=== PATIENT | female | born 1970 | race Caucasian/White ===

== ENCOUNTER 2021-07-16 09:04 | Day surgery (SDC) | payer OTHER ==
[2021-07-16] MEDS ORDERED: Sodium Chloride 0.9% 10 ML FLUSH Syringe IJ ONE (09:05)
[2021-07-16] MEDS ORDERED: Depo-Medrol 40 MG/ML IM ONE (09:05)
[2021-07-16] MEDS ORDERED: Lactated Ringers 1,000 ML IV ONE (10:26)
[2021-07-16] MEDS ORDERED: DIPRIVAN 200 MG/20 ML IV ONE (10:48)
--- NOTE | 2021-07-16 11:38 | XRAY ---
Indication: Left L4-S1 transforaminal ADWOA. Intraoperative fluoroscopy provided for 48 seconds. 4 digital spot image submitted for interpretation demonstrates posterior needle tips projecting over the expected left L4 and L5 nerve roots. Small amount of contrast injected for needle tip placement. Correlate with intraoperative findings/report.
--- NOTE | 2021-07-16 12:25 | XRAY ---
48 seconds of fluoroscopy was used in surgery for a left L4-S1 RFA.
== END 2021-07-16 11:17 | disposition home or self-care (01) ==
LOC: SDC-PAIN 09:04
PROVIDERS: ATTEND Psychiatry & Neurology Pain Medicine
DX: M54.16 Radiculopathy, lumbar region (principal); I10 Essential (primary) hypertension; E11.9 Type 2 diabetes mellitus without complications; Z79.899 Other long term (current) drug therapy
CPT/HCPCS: 64483; 64484; 72100; 77003; 82947; J1030; J2704; Q9966

== ENCOUNTER 2021-08-20 07:44 | Day surgery (SDC) | payer OTHER ==
[2021-08-20] MEDS ORDERED: LIDOCAINE HCL 2% 100 MG/5 ML IJ ONE (07:45)
[2021-08-20] MEDS ORDERED: Depo-Medrol 40 MG/ML IM ONE (07:45)
[2021-08-20] MEDS ORDERED: DIPRIVAN 200 MG/20 ML IV ONE (09:20)
[2021-08-20] MEDS ORDERED: Lactated Ringers 1,000 ML IV ONE (10:02)
--- NOTE | 2021-08-20 11:05 | XRAY ---
Indication: Bilateral L4-S1 MBB. Intraoperative fluoroscopy provided for 17 seconds. Single digital spot image submitted for interpretation demonstrate posterior needle tips projecting over the expected left and right L4-S1 nerve roots. Correlate with intraoperative findings/report.
--- NOTE | 2021-08-20 12:13 | XRAY ---
17 seconds of fluoroscopy was used in surgery for a bilateral L4-S1 MBB.
== END 2021-08-20 09:52 | disposition home or self-care (01) ==
LOC: SDC-PAIN 07:44
PROVIDERS: ATTEND Psychiatry & Neurology Pain Medicine
DX: M47.816 Spondylosis without myelopathy or radiculopathy, lumbar region (principal); E11.9 Type 2 diabetes mellitus without complications; I10 Essential (primary) hypertension; Z79.899 Other long term (current) drug therapy
CPT/HCPCS: 64493; 64494; 72020; 77002; 82947; J1030; J2704

== ENCOUNTER 2021-09-03 06:56 | Day surgery (SDC) | payer OTHER ==
[2021-09-03] MEDS ORDERED: Depo-Medrol 40 MG/ML IM ONE (06:57)
[2021-09-03] MEDS ORDERED: BUPIVACAINE 0.5% VIAL IJ ONE (06:57)
[2021-09-03] MEDS ORDERED: DIPRIVAN 200 MG/20 ML IV ONE (08:27)
--- NOTE | 2021-09-03 10:00 | XRAY ---
Indication: Bilateral L4-S1 MBB. Intraoperative fluoroscopy provided for 15 seconds. Single digital spot image submitted for interpretation demonstrates posterior needle tips projecting over the expected left and right L4-S1 nerve roots. Correlate with intraoperative findings/report.
[2021-09-03] MEDS ORDERED: Lactated Ringers 1,000 ML IV ONE (10:14)
--- NOTE | 2021-09-03 10:30 | XRAY ---
15 seconds of fluoroscopy was used in surgery for a bilateral L4-L1 MBB.
== END 2021-09-03 08:53 | disposition home or self-care (01) ==
LOC: SDC-PAIN 06:56
PROVIDERS: ATTEND Psychiatry & Neurology Pain Medicine
DX: M47.816 Spondylosis without myelopathy or radiculopathy, lumbar region (principal); I10 Essential (primary) hypertension; E11.9 Type 2 diabetes mellitus without complications; Z79.899 Other long term (current) drug therapy
CPT/HCPCS: 64493; 64494; 72020; 77002; 82947; J1030; J2704

== ENCOUNTER 2021-10-08 06:55 | Day surgery (SDC) | payer OTHER ==
[2021-10-08] MEDS ORDERED: BUPIVACAINE 0.5% VIAL IJ ONE (06:56)
[2021-10-08] MEDS ORDERED: Depo-Medrol 40 MG/ML IM ONE (06:56)
[2021-10-08] MEDS ORDERED: Xylocaine 1% Vial 30 ML PF IJ ONE (06:56)
[2021-10-08] MEDS ORDERED: DIPRIVAN 200 MG/20 ML IV ONE (08:16)
[2021-10-08] MEDS ORDERED: Lactated Ringers 1,000 ML IV ONE (08:55)
--- NOTE | 2021-10-08 10:13 | XRAY ---
35 seconds fluoroscopy time in surgery for left L4-S1 RFA.
--- NOTE | 2021-10-08 10:24 | XRAY ---
Indication: Left L4-S1 RFA. Intraoperative fluoroscopy provided for 35 seconds. 3 digital spot image submitted for interpretation demonstrates posterior needle tips projecting over the expected left L4-S1 nerve roots. Correlate with intraoperative findings/report.
== END 2021-10-08 08:43 | disposition home or self-care (01) ==
LOC: SDC-PAIN 06:55
PROVIDERS: ATTEND Psychiatry & Neurology Pain Medicine
DX: M47.816 Spondylosis without myelopathy or radiculopathy, lumbar region (principal); I10 Essential (primary) hypertension; E11.9 Type 2 diabetes mellitus without complications; Z79.899 Other long term (current) drug therapy
CPT/HCPCS: 64635; 64636; 72100; 77002; 82947; J1030; J2001; J2704

== ENCOUNTER 2021-10-15 06:49 | Day surgery (SDC) | payer OTHER ==
[2021-10-15] MEDS ORDERED: Xylocaine 1% Vial 30 ML PF IJ ONE (08:00)
[2021-10-15] MEDS ORDERED: Depo-Medrol 40 MG/ML IM ONE (08:00)
[2021-10-15] MEDS ORDERED: DIPRIVAN 200 MG/20 ML IV ONE ×2 (08:00→08:24)
[2021-10-15] MEDS ORDERED: BUPIVACAINE 0.5% VIAL IJ ONE (08:00)
[2021-10-15] MEDS ORDERED: Lactated Ringers 1,000 ML IV ONE (08:59)
--- NOTE | 2021-10-15 10:18 | XRAY ---
Indication: Right L4-S1 RFA. Intraoperative fluoroscopy provided for 57 seconds. 3 digital spot images submitted for interpretation demonstrates posterior needle tips projecting over the expected right L4-S1 nerve roots. Correlate with intraoperative findings/report.
--- NOTE | 2021-10-15 10:20 | XRAY ---
57 seconds fluoroscopy time in surgery for right L4-S1 RFA.
== END 2021-10-15 08:46 | disposition home or self-care (01) ==
LOC: SDC-PAIN 06:49
PROVIDERS: ATTEND Psychiatry & Neurology Pain Medicine
DX: M47.816 Spondylosis without myelopathy or radiculopathy, lumbar region (principal); E11.9 Type 2 diabetes mellitus without complications; I10 Essential (primary) hypertension; Z79.899 Other long term (current) drug therapy
CPT/HCPCS: 64635; 64636; 72100; 77002; 82947; J1030; J2001; J2704

== ENCOUNTER 2022-01-21 08:39 | Day surgery (SDC) | payer OTHER ==
[2022-01-21] MEDS ORDERED: Depo-Medrol 40 MG/ML IM ONE (08:40)
[2022-01-21] MEDS ORDERED: Marcaine Mpf 0.5% Vial 30 Ml IJ ONE (08:40)
[2022-01-21] MEDS ORDERED: DIPRIVAN 200 MG/20 ML IV ONE (10:02)
[2022-01-21] MEDS ORDERED: Lactated Ringers 1,000 ML IV ONE (10:07)
--- NOTE | 2022-01-21 11:46 | XRAY ---
Indication: Bilateral greater trochanter bursa injection. Intraoperative fluoroscopy provided for 59 seconds. 2 digital spot images submitted for interpretation demonstrate needle tip projecting lateral to the left and right greater trochanters. Small amount of contrast injected for needle tip placement. Correlate with intraoperative findings/report.
--- NOTE | 2022-01-21 12:29 | XRAY ---
59 seconds of fluoroscopy was used in surgery for bilateral hip greater trochanteric bursa injections.
== END 2022-01-21 10:31 | disposition home or self-care (01) ==
LOC: SDC-PAIN 08:39
PROVIDERS: ATTEND Psychiatry & Neurology Pain Medicine
DX: M70.62 Trochanteric bursitis, left hip (principal); M70.61 Trochanteric bursitis, right hip; E11.9 Type 2 diabetes mellitus without complications; Z79.899 Other long term (current) drug therapy
CPT/HCPCS: 20610; 73521; 77002; 82947; J1030; J2704; Q9966

== ENCOUNTER 2023-09-12 14:48 | Observation (INO) | payer OTHER ==
[2023-09-12] MEDS ORDERED: solu-MEDROL 125 MG, Sterile H2O 10 ml 2 ML IV ONE ×2 (15:11)
[2023-09-12] MEDS ORDERED: DUONEB 0.5-3 MG/3 ml Neb IH ONE ×2 (15:11→18:33)
[2023-09-12] MEDS ORDERED: PULMICORT 0.5 MG/2 ML RESPULES IH ONE (15:13)
[2023-09-12] MEDS ORDERED: Sodium Chloride 0.9% 1000 ML 1,000 ML IV SCH (15:15)
[2023-09-12 15:27] LABS: Hematocrit 43.5 % (35-47); Hemoglobin 14.7 g/dL (12.0-16.0); Mean Corpuscular Hemoglobin 28.1 pg (26-32); Mean Corpuscular Hgb Concent. 33.8 g/dL (32-36); Mean Platelet Volume 9.8 fL (7.5-11.0); Platelet Count 170 x10^3/uL (150-450); Red Blood Count 5.24 x10^6/uL (4.1-5.4); Red Cell Distribution Width 13.1 % (11.5-14.0)
[2023-09-12 15:29] LABS: White Blood Count 27.2 x10^3/uL (4.0-10.5)
[2023-09-12] MEDS ORDERED: Sterile H2O 10 ml IJ ONE ×2 (15:31→21:25)
[2023-09-12] MEDS ORDERED: solu-MEDROL ONE ×2 (15:31→21:25)
[2023-09-12] MEDS ORDERED: Sodium Chloride 0.9% 1000 ML 1,000 ML ONE (15:32)
[2023-09-12] MEDS ORDERED: ROCEPHIN 1 GM / 100 ML NaCl 1 GM/100 ML IVPB IV ONE ×2 (15:32→16:05)
--- NOTE | 2023-09-12 15:32 | ERPHSYRPT ---
- History of Present Illness Time Seen by Provider: 09/12/23 15:29 Source: patient Exam Limitations: clinical condition Patient Subjective Stated Complaint: pt here for a cough for a week with weakness, some n/v. no loose stools no fever Triage Nursing Assessment: pt alert, walked in, resp easy, skin w/d/p, has dry hacky cough, chest clear, moves all ext well Physician History: Patient is 53-year-old female with significant past medical history of hypertension diabetes obesity started having cough shortness of breath fever chills for last 1 week. Patient thought she will get better so she waited but today her symptoms got so worse that she came to the emergency room. She is complaining of chest pain while breathing. She is also very short of breath with minimal exertion. Patient denies any sick contact at home. Timing/Duration: day(s) (5-7 days) Activities at Onset: none Severity of Dyspnea-Max: moderate Severity of Dyspnea-Current: moderate Possible Cause: occasional episodes Associated Symptoms: chest pain/discomfort, wheezing, painful breathing, pr oductive cough, sweating Allergies/Adverse Reactions: ciprofloxacin [From Cipro] Adverse Reaction (Verified 09/12/23 15:01) metformin Adverse Reaction (Verified 09/12/23 15:01) Home Medications: Allopurinol 100 mg [Zyloprim 100 mg] 100 mg PO DAILY 09/12/23 [History] Amlodipine Besylate 5 mg [Norvasc 5 mg] 5 mg PO DAILY 09/12/23 [History] Cyclobenzaprine HCl 10 mg [Cyclobenzaprine 10 MG] 10 mg PO DAILY 09/12/23 [History] Escitalopram Oxalate [Lexapro] 1 ea DAILY 09/12/23 [History] Glimepiride 1 mg PO DAILY 09/12/23 [History] Insulin Glargine [Lantus Insulin] 40 unit SQ DAILY 09/12/23 [History] Semaglutide [Ozempic] 1 mg SQ UD 09/12/23 [History] Spironolactone 25 mg [Aldactone 25 MG] 25 mg PO DAILY 09/12/23 [History] Hx Tetanus, Diphtheria Vaccination/Date Given: No Hx Influenza Vaccination/Date Given: No Hx Pneumococcal Vaccination/Date Given: No Immunizations Up to Date: Yes Travel Risk - International Travel Have you traveled outside of the country in past 3 weeks: No - Coronavirus Screening Are you exhibiting any of the following symptoms?: Yes Symptoms: Cough: New Onset, Shortness of Breath Close contact with a COVID-19 positive Pt in past 14-21 Days: No - Vaccine Status Have you recieved a Covid-19 vaccination: Yes [employer]: [employer] - Vaccination Dates Date of 2cond Vaccination (if applicable): 2020 - Review of Systems Constitutional: No Fever, No Chills Eyes: No Symptoms Ears, Nose, & Throat: No Symptoms Respiratory: Cough, Dyspnea, Dyspnea on Exertion (GARCIA), Wheezing Cardiac: Chest Pain, No Edema, No Syncope Abdominal/Gastrointestinal: No Abdominal Pain, No Nausea, No Vomiting, No Diarrhea Genitourinary Symptoms: No Dysuria Musculoskeletal: No Back Pain, No Neck Pain Skin: No Rash Neurological: No Dizziness, No Focal Weakness, No Sensory Changes Psychological: No Symptoms Endocrine: No Symptoms All Other Systems: Reviewed and Negative - Past Medical History Pertinent Past Medical History: Yes Neurological History: Other Cardiac History: Hypertension Respiratory History: No Pertinent History Endocrine Medical History: Diabetes Type II Musculoskeletal History: Arthritis Other Medical History: kidney stones - Past Surgical History Past Surgical History: Yes Gastrointestinal: Cholecystectomy Female Surgical History: Hysterectomy - Social History Smoking Status: Former smoker Exposure to second hand smoke: No Drug Use: none Patient Lives Alone: Yes - Nursing Vital Signs Nursing Vital Signs: Initial Vital Signs Temperature 99.1 F 09/12/23 15:00 Pulse Rate 110 H 09/12/23 15:00 Respiratory Rate 18 09/12/23 15:00 Blood Pressure 122/69 09/12/23 15:00 O2 Sat by Pulse Oximetry 91 L 09/12/23 15:00 Pain Scale Pain Intensity 6 - Physical Exam General Appearance: no apparent distress, alert Eye Exam: PERRL/EOMI Neck Exam: normal inspection, supple Respiratory Exam: chest tenderness, diminished breath sounds, crackles/rales, rhonchi, wheezing Cardiovascular/Chest Exam: normal heart sounds, regular rate/rhythm Abdominal/Gastrointestinal Exam: soft, No tenderness, No distention, No mass Extremity Exam: non-tender, normal range of motion, normal inspection, no calf tenderness, no pedal edema Neurologic Exam: alert, oriented x 3, cooperative, veneer drier feeder II-XII nml as tested, sensation nml, No motor deficits Skin Exam: normal color, warm, No dry SpO2 Interpretation: borderline oxygenation SpO2: 91 O2 Delivery: Room Air - Course Nursing assessment & vital signs reviewed: Yes EKG Interpreted by Me: Sinus Rhythm - Radiology Exams Chest X-ray Interpretation: Reviewed by me, Pneumonia (right middle lobe) Ordered Tests: Active Orders 24 hr Category Date Time Status EKG-ER Only STAT Care 09/12/23 15:11 Active Oxygen-ED Only Nasal Cannula 3 lpm Care 09/12/23 15:11 Active CHEST 2 VIEWS (PA AND LAT) Stat Exams 09/12/23 15:32 Taken CBC W DIFF Stat Lab 09/12/23 15:15 Completed CMP Stat Lab 09/12/23 15:15 Completed MAGNESIUM Stat Lab 09/12/23 15:15 Completed Manual Differential NC Stat Lab 09/12/23 15:15 Completed NT PRO BNPII Stat Lab 09/12/23 15:15 Received TROPONIN Stat Lab 09/12/23 15:15 Completed Respiratory Therapy Assessment DAILY RT 09/12/23 15:43 Active Transfer Order Routine Transfer 09/12/23 Ordered Medication Summary Generic Name Dose Route Start Last Admin Trade Name Freq PRN Reason Stop Dose Admin Sodium Chloride 1,000 mls @ 50 mls/hr 09/12/23 15:15 09/12/23 15:35 Sodium Chloride 0.9% 1000 Ml IV 10/12/23 15:14 50 mls/hr .Q20H MEGAN Administration Discontinued Medications Generic Name Dose Route Start Last Admin Trade Name Freq PRN Reason Stop Dose Admin Albuterol/Ipratropium 3 ml 09/12/23 15:11 09/12/23 15:39 Ipratropium/Albuterol Sulfate 3 Ml Ampul.Neb 09/12/23 15:12 3 ml STAT ONE Administration Budesonide 0.5 mg 09/12/23 15:13 09/12/23 15:39 Budesonide 0.5 Mg/2 Ml Ampul.Neb. 09/12/23 15:14 0.5 mg ONCE ONE Administration Methylprednisolone Sodium 0 mg 09/12/23 15:11 09/12/23 15:36 Succinate 125 mg/ Sterile IV 09/12/23 15:12 125 mg Water 2 ml STAT ONE Administration Ceftriaxone Sodium 1 gm in 100 mls @ 200 mls/hr 09/12/23 15:32 09/12/23 16:15 Rocephin 1 Gm / 100 Ml Nacl IV 09/12/23 16:01 200 ml/hr STAT ONE 200 mls/hr Administration Ceftriaxone Sodium Confirm 09/12/23 16:05 Rocephin 1 Gm / 100 Ml Nacl Administered 09/12/23 16:06 Dose 1 gm in 100 mls @ ud IV .STK-MED ONE Methylprednisolone Sodium Succinate Confirm 09/12/23 15:31 Methylprednis Sod Succ 125 Mg/2 Ml Vial Administered 09/12/23 15:32 Dose 125 mg .ROUTE .STK-MED ONE Sterile Water Confirm 09/12/23 15:31 Water For Injection,Sterile 10 Ml Vial Administered 09/12/23 15:32 Dose 10 ml IJ .STK-MED ONE Lab/Rad Data: Laboratory Result Diagrams 09/12/23 15:15 09/12/23 15:15 Laboratory Results 09/12/23 09/12/23 09/12/23 Range/Units 15:20 15:15 15:15 WBC 27.2 H* (4.0-10.5) x10^3/uL RBC 5.24 (4.1-5.4) x10^6/uL Hgb 14.7 (12.0-16.0) g/dL Hct 43.5 (35-47) % MCV 83.0 (78-100) fL MCH 28.1 (26-32) pg MCHC 33.8 (32-36) g/dL RDW 13.1 (11.5-14.0) % Plt Count 170 (150-450) x10^3/uL MPV 9.8 (7.5-11.0) fL Segmented Neutrophils 92 H (36.0-66.0) % Lymphocytes (Manual) 1 L (24-44) % Monocytes (Manual) 7 (0.0-12.0) % Platelet Estimate NORMAL (NORMAL) RBC Morphology NORMAL Sodium 127 L (137-145) mmol/L Potassium 3.5 (3.5-5.1) mmol/L Chloride 91 L (98-107) mmol/L Carbon Dioxide 26 (22-30) mmol/L Anion Gap 12.8 (5-15) MEQ/L BUN 16 (7-17) mg/dL Creatinine 1.03 (0.52-1.04) mg/dL Estimated GFR 64.2 ML/MIN Glucose 226 H (74-106) mg/dL Calcium 8.8 (8.4-10.2) mg/dL Magnesium 1.6 (1.6-2.3) mg/dL Total Bilirubin 1.40 H (0.2-1.3) mg/dL AST 29 (14-36) U/L ALT 24 (0-35) U/L Alkaline Phosphatase 104 (38-126) U/L Troponin I < 0.012 (0.000-0.034) ng/mL Serum Total Protein 7.5 (6.3-8.2) g/dL Albumin 3.9 (3.5-5.0) g/dL Influenza Type A Ag NEGATIVE (NEGATIVE) Influenza Type B Ag NEGATIVE (NEGATIVE) RSV (PCR) POSITIVE (NEGATIVE) SARS-CoV-2 (PCR) NEGATIVE (NEGATIVE) - Progress Progress: unchanged Air Movement: fair Antibiotics given: Yes Discussed with : Other (Dr Lazaro) Counseled pt/family regarding: lab results, diagnosis, need for follow-up, rad results Medical Desision Making - Independent Historian Additional History obtained from: Spouse - Discussion of managment Care discussed with:: hospitalist Agreed on:: place in obs - Diagnostic Testing Diagnostic test were ordered, analyzed, and reviewed by me: Yes Radiological Interpretation: Reviewed by me - Risk of complications The pt has a mod risk of morbidity or mortality based on: Need for prescription drug management - Departure Departure Disposition: Observation Clinical Impression: Pneumonia of right middle lobe due to infectious organism, RSV (respiratory syncytial virus pneumonia) Condition: Fair Critical Care Time: No Referrals: DONI ESCOBAR DO [Primary Care Provider] - Follow up/PCP as directed Instructions: Pneumonia, Adult (DC)
[2023-09-12 16:05] LABS: INFLUENZA A NEGATIVE (NEGATIVE); INFLUENZA B NEGATIVE (NEGATIVE); SARS-CoV-2 Xpert Express NEGATIVE (NEGATIVE)
[2023-09-12 16:09] LABS: Lymphocytes 1 % (24-44); Monocyte 7 % (0.0-12.0); Neutrophils 92 % (36.0-66.0); Total Cells Counted 100
[2023-09-12 16:10] LABS: Platelet Estimate NORMAL (NORMAL)
[2023-09-12 16:13] LABS: RESPIRATORY SYNCTIAL VIRUS POSITIVE (NEGATIVE)
[2023-09-12 16:18] LABS: ALBUMIN 3.9 g/dL (3.5-5.0); ALKALINE PHOSPHATASE 104 U/L (38-126); ANION GAP 12.8 MEQ/L (5-15); BLOOD UREA NITROGEN 16 mg/dL (7-17); CHLORIDE 91 mmol/L (98-107); Calcium 8.8 mg/dL (8.4-10.2); Carbon Dioxide 26 mmol/L (22-30); Creatinine 1 1.03 mg/dL (0.52-1.04); EST GLOMERULAR FILTRATION RATE 64.2 ML/MIN; Glucose 226 mg/dL (74-106); MAGNESIUM 1.6 mg/dL (1.6-2.3); Potassium 3.5 mmol/L (3.5-5.1); SGOT/AST 29 U/L (14-36); SGPT/ALT 24 U/L (0-35); SODIUM 127 mmol/L (137-145); TROPONIN < 0.012 ng/mL (0.000-0.034); Total Protein 7.5 g/dL (6.3-8.2)
[2023-09-12] MEDS ORDERED: ROCEPHIN 1 GM / 100 ML NaCl 1 GM/100 ML IVPB IV SCH (17:16)
--- NOTE | 2023-09-12 17:21 | PCM.HP ---
History of Present Illness - Chief Complaint Chief Complaint: sob/cough Date: 09/12/23 History of Present Illness: is a 53 year old female with a pmhx of DMII, HTN, and depression who presented to ED 09/12/23 with complaints of shortness of breath at rest and with exertion, non-productive cough, and subjective fever/chills. Patient reports that symptoms began about a week ago with her shortness of breath getting progressively worse which prompted her to come to ED today. She also endorses right chest pain with deep inhalation and cough. She states her friend also has the same symptoms. In ED, patient was tachycardic with spo2 @ 91% on RA. CXR consistent with pneumonia. Laboratory findings remarkable for leukocytosis with WBC at 27.2, RSV positive, hyponatremia in the setting of hyperglycemia, corrected sodium at 129.Patient placed on 2L oxygen, RA at baseline. Ceftriaxone, solumedrol, azithromycin, and duonebs given/ - Review of Systems Constitutional: Fever, Chills Eyes: No Symptoms Ears, Nose, & Throat: No Symptoms Respiratory: Cough, Short Of Breath Cardiac: Chest Pain (with cough/deep inhalation) Abdominal/Gastrointestinal: No Symptoms Genitourinary Symptoms: No Symptoms Musculoskeletal: No Symptoms Skin: No Symptoms Neurological: No Symptoms Psychological: No Symptoms Endocrine: No Symptoms Medications & Allergies Home Medications: Home Medication List Allopurinol 100 mg [Zyloprim 100 mg] 200 mg PO DAILY 09/12/23 [History Confirmed 09/12/23] Amlodipine Besylate 5 mg [Norvasc 5 mg] 5 mg PO DAILY 09/12/23 [History Confirmed 09/12/23] Cyclobenzaprine HCl 10 mg [Cyclobenzaprine 10 MG] 10 mg PO DAILY 09/12/23 [History Confirmed 09/12/23] Escitalopram Oxalate [Lexapro] 10 mg PO DAILY 09/12/23 [History Confirmed 09/12/23] Glimepiride 1 mg PO BID 09/12/23 [History Confirmed 09/12/23] Insulin Glargine [Lantus Insulin] 40 unit SQ DAILY 09/12/23 [History Confirmed 09/12/23] Semaglutide [Ozempic] 1 mg SQ UD 09/12/23 [History Confirmed 09/12/23] Spironolactone 25 mg [Aldactone 25 MG] 25 mg PO DAILY 09/12/23 [History Confirmed 09/12/23] hydroCHLOROthiazide [Hydrochlorothiazide] 12.5 mg PO DAILY 09/12/23 [History Confirmed 09/12/23] Allergies/Adverse Reactions: Allergies Allergy/AdvReac Type Severity Reaction Status Date / Time ciprofloxacin [From Cipro] AdvReac Verified 09/12/23 15:01 metformin AdvReac Verified 09/12/23 15:01 - Past Medical History Past Medical History: Yes Neurological History: Other Cardiac History: Hypertension Respiratory History: No Pertinent History Endocrine Medical History: Diabetes Type II Musculoskelatal History: Arthritis Pyscho-Social History: Depression Comment: kidney stones - Past Surgical History Past Surgical History: Yes GI Surgical History: Cholecystectomy Female Surgical History: Hysterectomy - Social History Smoking Status: Former smoker Exposure to second hand smoke: No Alcohol: None Drug Use: none - Physical Exam Vital Signs: Vital Signs - 24 hr Temp Pulse Resp BP BP Pulse Ox 09/12/23 16:31 91 L 09/12/23 16:00 103 H 28 H 104/56 89 L 09/12/23 15:50 102 H 26 H 95 09/12/23 15:47 98 H 21 96 09/12/23 15:43 104 H 18 91 L 09/12/23 15:19 22 91 L 09/12/23 15:00 99.1 F 110 H 18 122/69 91 L General Appearance: no apparent distress Neurologic Exam: alert, oriented x 3, cooperative Eye Exam: PERRL/EOMI Ears, Nose, Throat Exam: normal ENT inspection Neck Exam: normal inspection Respiratory Exam: diminished breath sounds, crackles/rales Cardiovascular Exam: normal heart sounds, tachycardia Gastrointestinal/Abdomen Exam: soft, normal bowel sounds Pelvic Exam: not done Rectal Exam: deferred Back Exam: normal inspection Extremity Exam: normal inspection Skin Exam: normal color Results - Labs Lab/Micro Results: Lab Results-Last 24 Hours 09/12/23 09/12/23 09/12/23 Range/Units 15:15 15:15 15:15 WBC 27.2 H* (4.0-10.5) x10^3/uL RBC 5.24 (4.1-5.4) x10^6/uL Hgb 14.7 (12.0-16.0) g/dL Hct 43.5 (35-47) % MCV 83.0 (78-100) fL MCH 28.1 (26-32) pg MCHC 33.8 (32-36) g/dL RDW 13.1 (11.5-14.0) % Plt Count 170 (150-450) x10^3/uL MPV 9.8 (7.5-11.0) fL Segmented Neutrophils 92 H (36.0-66.0) % Lymphocytes (Manual) 1 L (24-44) % Monocytes (Manual) 7 (0.0-12.0) % Platelet Estimate NORMAL (NORMAL) RBC Morphology NORMAL Sodium 127 L (137-145) mmol/L Potassium 3.5 (3.5-5.1) mmol/L Chloride 91 L (98-107) mmol/L Carbon Dioxide 26 (22-30) mmol/L Anion Gap 12.8 (5-15) MEQ/L BUN 16 (7-17) mg/dL Creatinine 1.03 (0.52-1.04) mg/dL Estimated GFR 64.2 ML/MIN Glucose 226 H (74-106) mg/dL Calcium 8.8 (8.4-10.2) mg/dL Magnesium 1.6 (1.6-2.3) mg/dL Total Bilirubin 1.40 H (0.2-1.3) mg/dL AST 29 (14-36) U/L ALT 24 (0-35) U/L Alkaline Phosphatase 104 (38-126) U/L Troponin I < 0.012 (0.000-0.034) ng/mL NT-Pro-B Natriuret Pep 37.5 (<300) pg/mL Serum Total Protein 7.5 (6.3-8.2) g/dL Albumin 3.9 (3.5-5.0) g/dL Influenza Type A Ag (NEGATIVE) Influenza Type B Ag (NEGATIVE) RSV (PCR) (NEGATIVE) SARS-CoV-2 (PCR) (NEGATIVE) 09/12/23 Range/Units 15:20 WBC (4.0-10.5) x10^3/uL RBC (4.1-5.4) x10^6/uL Hgb (12.0-16.0) g/dL Hct (35-47) % MCV (78-100) fL MCH (26-32) pg MCHC (32-36) g/dL RDW (11.5-14.0) % Plt Count (150-450) x10^3/uL MPV (7.5-11.0) fL Segmented Neutrophils (36.0-66.0) % Lymphocytes (Manual) (24-44) % Monocytes (Manual) (0.0-12.0) % Platelet Estimate (NORMAL) RBC Morphology Sodium (137-145) mmol/L Potassium (3.5-5.1) mmol/L Chloride (98-107) mmol/L Carbon Dioxide (22-30) mmol/L Anion Gap (5-15) MEQ/L BUN (7-17) mg/dL Creatinine (0.52-1.04) mg/dL Estimated GFR ML/MIN Glucose (74-106) mg/dL Calcium (8.4-10.2) mg/dL Magnesium (1.6-2.3) mg/dL Total Bilirubin (0.2-1.3) mg/dL AST (14-36) U/L ALT (0-35) U/L Alkaline Phosphatase (38-126) U/L Troponin I (0.000-0.034) ng/mL NT-Pro-B Natriuret Pep (<300) pg/mL Serum Total Protein (6.3-8.2) g/dL Albumin (3.5-5.0) g/dL Influenza Type A Ag NEGATIVE (NEGATIVE) Influenza Type B Ag NEGATIVE (NEGATIVE) RSV (PCR) POSITIVE (NEGATIVE) SARS-CoV-2 (PCR) NEGATIVE (NEGATIVE) - Radiology Impressions Radiology Exams & Impressions: Radiology Procedures Category Date Time Status CHEST 2 VIEWS (PA AND LAT) Stat Exams 09/12/23 15:32 Taken - Other Procedures and Tests Respiratory Therapy 09/12/23 15:43 Respiratory Therapy Assessment DAILY Assessment/Plan (1) Sepsis Current Visit: Yes Status: Acute Assessment & Plan: -Most likely secondary to RSV with superimposed bacterial pneumonia -CXR reviewed consistent with pneumonia -pending final read by radiology -CTA chest w/contrast -PE protocol -Viral panel with RSV positive -Lactate/Procal drawn. Repeat lactate will be drawn in initial >2mmol/L If subsequent lactate elevated, trend until WNL -Will admin vasopressors is hypotensive after IV admin (MAP <65 or SBP <90). -blood and urine cxs ordered and pending -IVF bolus -Ceftriaxone/azithromycin given in ED, will continue ceftriaxone/azithromycin -RT eval, supplemental oxygen with goal spo2>92%-CBC, BMP, Mg, Phos in am- continue appropriate baseline home medications -DVT prophylaxis-lovenox 40 mg SQ daily (2) RSV (respiratory syncytial virus infection) Current Visit: Yes Status: Acute Assessment & Plan: -supportive treatment with supplemental oxygen with goal spo2 > 92%, tessalon perles/see pneumonia Code(s): B33.8 - OTHER SPECIFIED VIRAL DISEASES (3) Pneumonia Current Visit: Yes Status: Acute Assessment & Plan: -CXR consistent with pneumonia -pending final read -CT chest w/PE protocol pending -supplemental oxygen for goal spo2 > 92% -pulm consult if no improvement -Blood cxs obtained and pending -sputum culture -Mucinex/tessalon perles -start duonebs, methylprednisone -received ceftriaxone in ED, continue ceftriaxone/azithromycin Code(s): J18.9 - PNEUMONIA, UNSPECIFIED ORGANISM (4) Hyponatremia Current Visit: Yes Status: Acute Assessment & Plan: -sodium correction for hyperglycemia 129 -IVF -TSH, lipid, urine sodium -BMP q4H Code(s): E87.1 - HYPO-OSMOLALITY AND HYPONATREMIA (5) Diabetes mellitus Current Visit: Yes Status: Acute Assessment & Plan: -ADA diet -SSI - may need to adjust in the setting of steroids/glargine -A1c Code(s): E11.9 - TYPE 2 DIABETES MELLITUS WITHOUT COMPLICATIONS (6) HTN (hypertension) Current Visit: Yes Status: Acute Assessment & Plan: -stable, continue home regimen VTE: lovenox PPI: protonix Dispo: 1-2 days Code(s): I10 - ESSENTIAL (PRIMARY) HYPERTENSION
[2023-09-12] MEDS ORDERED: Sodium Chloride 0.9% 1000 ML 1,000 ML IV STA (17:23)
[2023-09-12] MEDS ORDERED: TYLENOL 325 MG PO PRN (17:23)
[2023-09-12] MEDS ORDERED: HUMALOG SQ PRN (17:27)
[2023-09-12] MEDS ORDERED: Tessalon Perles 100 MG PO PRN (17:55)
[2023-09-12 18:30] LABS: PHOSPHOROUS 2.2 mg/dL (2.5-4.5); Risk Ratio 3.1; TSH, 3RD Generation 0.176 mIU/L (0.47-4.68)
--- NOTE | 2023-09-12 18:48 | XRAY ---
Indication: Short of breath. Comparison: None PA/lateral chest demonstrates right perihilar masslike opacity further detailed on same-day CT chest exam. Remaining heart and left lung unremarkable. Bony thorax intact with minimal dextroscoliosis.
[2023-09-12 19:07] LABS: Appearance Clear (Clear); Bacteria None Seen /HPF (None Seen); Bilirubin Small (Negative); Blood Negative (Negative); Epithelial Cells Moderate /HPF (None Seen); Glucose, Urine Negative (Negative); Ketones 15 (Negative); Leukocyte Esterase Negative (Negative); Nitrite Negative (Negative); Ph 5.5 (4.6-8.0); Protein,Urine Dip 100 (Negative); RBC 0-2 /HPF (0-5); Specific Gravity >=1.030 (1.005-1.030); WBC 0-2 /HPF (0-5)
[2023-09-12 19:09] LABS: ADD URINE CULTURE? YES (NO)
[2023-09-12] MEDS: DUONEB 0.5-3 MG/3 ml Neb IH SCH (19:24)
[2023-09-12] MEDS: Sodium Chloride 0.9% 1000 ML 1,000 ML IV SCH (19:57)
--- NOTE | 2023-09-12 20:30 | XRAY ---
CLINICAL HISTORY: sob pneumonia TECHNIQUE: Contiguous 3.[address] images of the chest were acquired with administration of intravenous contrast. Coronal and sagittal reconstructions were obtained. COMPARISON: None FINDINGS: A patch of dense consolidation is noted in the superior and medial basal segment of right lower lobe. Surrounding ground glass haze is also identified in right lower lobe. Rest of right lung and left lung are normally visualized. No consoildation is noted. No free or encysted pleural effusion. Heart size is normal and there is no pericardial effusion. Reactive appearing mediastinal lymph nodes are visualized, index node measures 12 mm in short axis in subcarinal location. Airways appaer patent. There is no definite mass lesion in the chest wall. Scanned upper abdomen shows diffuse fatty infiltration of liver. A 13 mm mixed density nodule is noted in left lobe of thyroid gland. Visualized skeleton shows moderate degenerative changes. IMPRESSION: 1. No evidence of PE. 2. A patch of dense consolidation is noted in the right lower lobe with surrounding ground glass haze. Primary consideration is pneumonia. Follow up is recommended. 3. 13 mm mixed density nodule seen in left lobe of thyroid, US correlation is advised. ER was called at [phone] at 8:19 PM EST, 09/12/2023 and results were verbally communicated to the ER physician. Electronically Signed by: Brandy Davis MD. (09/12/2023 20:25:18 EST)
[2023-09-12] MEDS ORDERED: HUMALOG ONE (20:52)
[2023-09-12] MEDS: Mucinex 600MG ER Tabs PO SCH (21:45)
[2023-09-12] MEDS: solu-MEDROL 40 MG, Sterile H2O 10 ml 1 ML IV SCH ×2 (21:45)
[2023-09-13] MEDS: DUONEB 0.5-3 MG/3 ml Neb IH SCH ×4 (00:25→18:13)
[2023-09-13 04:45] LABS: Absolute Neutrophil Ct (ANC) 17.73 x10^3/uL (1.4-6.9); BASOPHIL % 0.2 % (0.0-0.4); Basophil (Absolute #) 0.03 x10^3/uL (0-0.4); Eosinophil % 0.2 % (0.00-5.0); Eosinophil (Absolute #) 0.04 x10^3/uL (0-0.5); Hematocrit 41.7 % (35-47); Hemoglobin 13.8 g/dL (12.0-16.0); Lymphocyte (Absolute #) 1.21 x10^3/uL (1.0-4.6); Lymphocytes % 6.1 % (24.0-44.0); Mean Cell Volume 85.3 fL (78-100); Mean Corpuscular Hemoglobin 28.2 pg (26-32); Mean Corpuscular Hgb Concent. 33.1 g/dL (32-36); Mean Platelet Volume 9.6 fL (7.5-11.0); Monocyte (Absolute #) 0.55 x10^3/uL (0.0-1.3); Monocytes % 2.8 % (0.0-12.0); Neutrophil % 89.7 % (36.0-66.0); Platelet Count 131 x10^3/uL (150-450); Red Blood Count 4.89 x10^6/uL (4.1-5.4); Red Cell Distribution Width 12.8 % (11.5-14.0); White Blood Count 19.8 x10^3/uL (4.0-10.5)
[2023-09-13] MEDS: Sodium Chloride 0.9% 1000 ML 1,000 ML IV SCH ×2 (05:13→17:22)
--- NOTE | 2023-09-13 05:18 | PCM.NOTE ---
Date and Time: 09/13/23 05 Subjective Assessment: Ms. Johnson is a 53 year old female admitted with sepsis secondary to RSV with superimposed pneumonia. Upon presentation WBC at 27.2. Lung sound diminished with coarse crackles in bases. Patient placed on 2L, she is RA at baseline. Sepsis workup obtained, blood, sputum, and urine cultures pending. Current tr eatment with ceftriaxone/azithromycin/duonebs/inh/solumedrol. 09/13: Met with patient bedside. No overnight events noted. Endorses improvement is dyspnea, cough is more productive. Lung sounds with fine crackles to bilateral bases and exp wheezing. She is on her baseline of RA. Discussed lab findings, WBC with noted improvement. Potassium is low, will replenish. Hyponatremia in the setting of hyperglycemia, is improved. Adjustments made to insulin regimen. A1c is at 8.91. Discussed hyperglycemia secondary to steroid use, may need adjustments to home medications on discharge. Blood/urine/sputum cultures pending. Denies fever, cp, abdominal pain, FERNANDEZ, dizziness, N/V/D. <DANY CORREA - Last Filed: 09/13/23 10:17> Date and Time: 09/13/232101 <NEFTALY PATTON - Last Filed: 09/13/23 21:03> - Review of Systems Constitutional: No Symptoms Eyes: No Symptoms Ears, Nose, & Throat: No Symptoms Respiratory: Cough, Short Of Breath, Wheezing Cardiac: No Symptoms Abdominal/Gastrointestinal: No Symptoms Genitourinary Symptoms: No Symptoms Musculoskeletal: No Symptoms Skin: No Symptoms Neurological: No Symptoms Psychological: No Symptoms Endocrine: No Symptoms Hematologic/Lymphatic: No Symptoms Immunological/Allergic: No Symptoms <DANY CORREA - Last Filed: 09/13/23 10:17> Objective Exam General Appearance: no apparent distress Neurologic Exam: alert, oriented x 3, cooperative Skin Exam: normal color Eye Exam: PERRL Ears, Nose, Throat Exam: normal ENT inspection Neck Exam: normal inspection Respiratory Exam: crackles/rales, wheezing Cardiovascular Exam: regular rate/rhythm, normal heart sounds Gastrointestinal/Abdomen Exam: soft, normal bowel sounds Extremity Exam: normal inspection Back Exam: normal inspection Pelvic Exam: deferred Rectal Exam: deferred <DANY CORREA - Last Filed: 09/13/23 10:17> OBJECTIVE DATA Vital Signs: Vital Signs - 24 hr Temp Pulse Resp BP BP Pulse Ox 09/13/23 03:59 98.3 F 89 19 111/66 92 L 09/12/23 23:56 97.8 F 84 20 109/50 92 L 09/12/23 20:02 97.6 F 101 H 22 120/67 93 L 09/12/23 19:25 94 H 16 90 L 09/12/23 17:52 101 H 22 93 L 09/12/23 17:47 97.6 F 100 H 16 120/67 92 L 09/12/23 17:15 97.6 F 100 H 16 120/67 92 L 09/12/23 16:31 91 L 09/12/23 16:00 103 H 28 H 104/56 89 L 09/12/23 15:50 102 H 26 H 95 09/12/23 15:47 98 H 21 96 09/12/23 15:43 104 H 18 91 L 09/12/23 15:19 22 91 L 09/12/23 15:00 99.1 F 110 H 18 122/69 91 L Pain Assessment - Last Documented Pain Intensity 0 Intake and Output: Intake & Output 09/10/23 09/11/23 09/12/23 09/13/23 11:59 11:59 11:59 11:59 Intake Total 2383 Output Total 1000 Balance 1383 Weight 143.7 kg Lab Results: Lab Results-Last 24 Hours 09/12/23 09/12/23 09/12/23 Range/Units 15:15 15:15 15:15 WBC 27.2 H* (4.0-10.5) x10^3/uL RBC 5.24 (4.1-5.4) x10^6/uL Hgb 14.7 (12.0-16.0) g/dL Hct 43.5 (35-47) % MCV 83.0 (78-100) fL MCH 28.1 (26-32) pg MCHC 33.8 (32-36) g/dL RDW 13.1 (11.5-14.0) % Plt Count 170 (150-450) x10^3/uL MPV 9.8 (7.5-11.0) fL Gran % (36.0-66.0) % Immature Gran % (Auto) (0.00-0.4) % Nucleat RBC Rel Count (0.00-0.1) % Eos # (Auto) (0-0.5) x10^3/uL Immature Gran # (Auto) (0.00-0.03) x10^3u/L Absolute Lymphs (auto) (1.0-4.6) x10^3/uL Absolute Monos (auto) (0.0-1.3) x10^3/uL Absolute Nucleated RBC (0.00-0.01) x10^3u/L Lymphocytes % (24.0-44.0) % Monocytes % (0.0-12.0) % Eosinophils % (0.00-5.0) % Basophils % (0.0-0.4) % Absolute Granulocytes (1.4-6.9) x10^3/uL Segmented Neutrophils 92 H (36.0-66.0) % Lymphocytes (Manual) 1 L (24-44) % Monocytes (Manual) 7 (0.0-12.0) % Basophils # (0-0.4) x10^3/uL Platelet Estimate NORMAL (NORMAL) RBC Morphology NORMAL Sodium 127 L (137-145) mmol/L Potassium 3.5 (3.5-5.1) mmol/L Chloride 91 L (98-107) mmol/L Carbon Dioxide 26 (22-30) mmol/L Anion Gap 12.8 (5-15) MEQ/L BUN 16 (7-17) mg/dL Creatinine 1.03 (0.52-1.04) mg/dL Estimated GFR 64.2 ML/MIN Glucose 226 H (74-106) mg/dL POC Glucometer (74 to 106) mg/dL Hemoglobin A1c (4.5-6.0) % Lactic Acid (0.4-2.0) Calcium 8.8 (8.4-10.2) mg/dL Phosphorus (2.5-4.5) mg/dL Magnesium 1.6 (1.6-2.3) mg/dL Total Bilirubin 1.40 H (0.2-1.3) mg/dL AST 29 (14-36) U/L ALT 24 (0-35) U/L Alkaline Phosphatase 104 (38-126) U/L Troponin I < 0.012 (0.000-0.034) ng/mL NT-Pro-B Natriuret Pep 37.5 (<300) pg/mL Serum Total Protein 7.5 (6.3-8.2) g/dL Albumin 3.9 (3.5-5.0) g/dL Triglycerides (30-150) mg/dL Cholesterol (50-200) mg/dL LDL Cholesterol (30-100) mg/dL HDL Cholesterol (40-60) mg/dL Heart Disease Risk Ratio Procalcitonin (0.030-0.080) ng/mL TSH 3rd Generation (0.47-4.68) mIU/L Urine Color (Yellow) Urine Appearance (Clear) Urine pH (4.6-8.0) Ur Specific [place] (1.005-1.030) Urine Protein (Negative) Urine Glucose (UA) (Negative) mg/dL Urine Ketones (Negative) Urine Blood (Negative) Urine Nitrite (Negative) Urine Bilirubin (Negative) Urine Urobilinogen (0.2) mg/dL Ur Leukocyte Esterase (Negative) U Hyaline Cast (Auto) (0-2) /LPF Urine Microscopic RBC (0-5) /HPF Urine Microscopic WBC (0-5) /HPF Ur Epithelial Cells (None Seen) /HPF Urine Bacteria (None Seen) /HPF Urine Culture Reflexed (NO) Urine Sodium (30-90) mmol/L Influenza Type A Ag (NEGATIVE) Influenza Type B Ag (NEGATIVE) RSV (PCR) (NEGATIVE) SARS-CoV-2 (PCR) (NEGATIVE) 09/12/23 09/12/23 09/12/23 Range/Units 15:15 15:15 15:20 WBC (4.0-10.5) x10^3/uL RBC (4.1-5.4) x10^6/uL Hgb (12.0-16.0) g/dL Hct (35-47) % MCV (78-100) fL MCH (26-32) pg MCHC (32-36) g/dL RDW (11.5-14.0) % Plt Count (150-450) x10^3/uL MPV (7.5-11.0) fL Gran % (36.0-66.0) % Immature Gran % (Auto) (0.00-0.4) % Nucleat RBC Rel Count (0.00-0.1) % Eos # (Auto) (0-0.5) x10^3/uL Immature Gran # (Auto) (0.00-0.03) x10^3u/L Absolute Lymphs (auto) (1.0-4.6) x10^3/uL Absolute Monos (auto) (0.0-1.3) x10^3/uL Absolute Nucleated RBC (0.00-0.01) x10^3u/L Lymphocytes % (24.0-44.0) % Monocytes % (0.0-12.0) % Eosinophils % (0.00-5.0) % Basophils % (0.0-0.4) % Absolute Granulocytes (1.4-6.9) x10^3/uL Segmented Neutrophils (36.0-66.0) % Lymphocytes (Manual) (24-44) % Monocytes (Manual) (0.0-12.0) % Basophils # (0-0.4) x10^3/uL Platelet Estimate (NORMAL) RBC Morphology Sodium (137-145) mmol/L Potassium (3.5-5.1) mmol/L Chloride (98-107) mmol/L Carbon Dioxide (22-30) mmol/L Anion Gap (5-15) MEQ/L BUN (7-17) mg/dL Creatinine (0.52-1.04) mg/dL Estimated GFR ML/MIN Glucose (74-106) mg/dL POC Glucometer (74 to 106) mg/dL Hemoglobin A1c 8.91 H (4.5-6.0) % Lactic Acid (0.4-2.0) Calcium (8.4-10.2) mg/dL Phosphorus 2.2 L (2.5-4.5) mg/dL Magnesium (1.6-2.3) mg/dL Total Bilirubin (0.2-1.3) mg/dL AST (14-36) U/L ALT (0-35) U/L Alkaline Phosphatase (38-126) U/L Troponin I (0.000-0.034) ng/mL NT-Pro-B Natriuret Pep (<300) pg/mL Serum Total Protein (6.3-8.2) g/dL Albumin (3.5-5.0) g/dL Triglycerides 89 (30-150) mg/dL Cholesterol 119 (50-200) mg/dL LDL Cholesterol 58 (30-100) mg/dL HDL Cholesterol 39 L (40-60) mg/dL Heart Disease Risk Ratio 3.1 Procalcitonin (0.030-0.080) ng/mL TSH 3rd Generation 0.176 L (0.47-4.68) mIU/L Urine Color (Yellow) Urine Appearance (Clear) Urine pH (4.6-8.0) Ur Specific [place] (1.005-1.030) Urine Protein (Negative) Urine Glucose (UA) (Negative) mg/dL Urine Ketones (Negative) Urine Blood (Negative) Urine Nitrite (Negative) Urine Bilirubin (Negative) Urine Urobilinogen (0.2) mg/dL Ur Leukocyte Esterase (Negative) U Hyaline Cast (Auto) (0-2) /LPF Urine Microscopic RBC (0-5) /HPF Urine Microscopic WBC (0-5) /HPF Ur Epithelial Cells (None Seen) /HPF Urine Bacteria (None Seen) /HPF Urine Culture Reflexed (NO) Urine Sodium (30-90) mmol/L Influenza Type A Ag NEGATIVE (NEGATIVE) Influenza Type B Ag NEGATIVE (NEGATIVE) RSV (PCR) POSITIVE (NEGATIVE) SARS-CoV-2 (PCR) NEGATIVE (NEGATIVE) 09/12/23 09/12/23 09/12/23 Range/Units 17:24 18:00 18:15 WBC (4.0-10.5) x10^3/uL RBC (4.1-5.4) x10^6/uL Hgb (12.0-16.0) g/dL Hct (35-47) % MCV (78-100) fL MCH (26-32) pg MCHC (32-36) g/dL RDW (11.5-14.0) % Plt Count (150-450) x10^3/uL MPV (7.5-11.0) fL Gran % (36.0-66.0) % Immature Gran % (Auto) (0.00-0.4) % Nucleat RBC Rel Count (0.00-0.1) % Eos # (Auto) (0-0.5) x10^3/uL Immature Gran # (Auto) (0.00-0.03) x10^3u/L Absolute Lymphs (auto) (1.0-4.6) x10^3/uL Absolute Monos (auto) (0.0-1.3) x10^3/uL Absolute Nucleated RBC (0.00-0.01) x10^3u/L Lymphocytes % (24.0-44.0) % Monocytes % (0.0-12.0) % Eosinophils % (0.00-5.0) % Basophils % (0.0-0.4) % Absolute Granulocytes (1.4-6.9) x10^3/uL Segmented Neutrophils (36.0-66.0) % Lymphocytes (Manual) (24-44) % Monocytes (Manual) (0.0-12.0) % Basophils # (0-0.4) x10^3/uL Platelet Estimate (NORMAL) RBC Morphology Sodium (137-145) mmol/L Potassium (3.5-5.1) mmol/L Chloride (98-107) mmol/L Carbon Dioxide (22-30) mmol/L Anion Gap (5-15) MEQ/L BUN (7-17) mg/dL Creatinine (0.52-1.04) mg/dL Estimated GFR ML/MIN Glucose (74-106) mg/dL POC Glucometer (74 to 106) mg/dL Hemoglobin A1c (4.5-6.0) % Lactic Acid 1.8 (0.4-2.0) Calcium (8.4-10.2) mg/dL Phosphorus (2.5-4.5) mg/dL Magnesium (1.6-2.3) mg/dL Total Bilirubin (0.2-1.3) mg/dL AST (14-36) U/L ALT (0-35) U/L Alkaline Phosphatase (38-126) U/L Troponin I (0.000-0.034) ng/mL NT-Pro-B Natriuret Pep (<300) pg/mL Serum Total Protein (6.3-8.2) g/dL Albumin (3.5-5.0) g/dL Triglycerides (30-150) mg/dL Cholesterol (50-200) mg/dL LDL Cholesterol (30-100) mg/dL HDL Cholesterol (40-60) mg/dL Heart Disease Risk Ratio Procalcitonin 0.606 H (0.030-0.080) ng/mL TSH 3rd Generation (0.47-4.68) mIU/L Urine Color Dark Yellow A (Yellow) Urine Appearance Clear (Clear) Urine pH 5.5 (4.6-8.0) Ur Specific [place] >=1.030 A (1.005-1.030) Urine Protein 100 A (Negative) Urine Glucose (UA) Negative (Negative) mg/dL Urine Ketones 15 A (Negative) Urine Blood Negative (Negative) Urine Nitrite Negative (Negative) Urine Bilirubin Small A (Negative) Urine Urobilinogen 1.0 A (0.2) mg/dL Ur Leukocyte Esterase Negative (Negative) U Hyaline Cast (Auto) 3-5 A (0-2) /LPF Urine Microscopic RBC 0-2 (0-5) /HPF Urine Microscopic WBC 0-2 (0-5) /HPF Ur Epithelial Cells Moderate A (None Seen) /HPF Urine Bacteria None Seen (None Seen) /HPF Urine Culture Reflexed YES (NO) Urine Sodium (30-90) mmol/L Influenza Type A Ag (NEGATIVE) Influenza Type B Ag (NEGATIVE) RSV (PCR) (NEGATIVE) SARS-CoV-2 (PCR) (NEGATIVE) 09/12/23 09/12/23 09/12/23 Range/Units 20:48 21:00 Unknown WBC (4.0-10.5) x10^3/uL RBC (4.1-5.4) x10^6/uL Hgb (12.0-16.0) g/dL Hct (35-47) % MCV (78-100) fL MCH (26-32) pg MCHC (32-36) g/dL RDW (11.5-14.0) % Plt Count (150-450) x10^3/uL MPV (7.5-11.0) fL Gran % (36.0-66.0) % Immature Gran % (Auto) (0.00-0.4) % Nucleat RBC Rel Count (0.00-0.1) % Eos # (Auto) (0-0.5) x10^3/uL Immature Gran # (Auto) (0.00-0.03) x10^3u/L Absolute Lymphs (auto) (1.0-4.6) x10^3/uL Absolute Monos (auto) (0.0-1.3) x10^3/uL Absolute Nucleated RBC (0.00-0.01) x10^3u/L Lymphocytes % (24.0-44.0) % Monocytes % (0.0-12.0) % Eosinophils % (0.00-5.0) % Basophils % (0.0-0.4) % Absolute Granulocytes (1.4-6.9) x10^3/uL Segmented Neutrophils (36.0-66.0) % Lymphocytes (Manual) (24-44) % Monocytes (Manual) (0.0-12.0) % Basophils # (0-0.4) x10^3/uL Platelet Estimate (NORMAL) RBC Morphology Sodium 128 L (137-145) mmol/L Potassium (3.5-5.1) mmol/L Chloride (98-107) mmol/L Carbon Dioxide (22-30) mmol/L Anion Gap (5-15) MEQ/L BUN (7-17) mg/dL Creatinine (0.52-1.04) mg/dL Estimated GFR ML/MIN Glucose (74-106) mg/dL POC Glucometer 355 H (74 to 106) mg/dL Hemoglobin A1c (4.5-6.0) % Lactic Acid (0.4-2.0) Calcium (8.4-10.2) mg/dL Phosphorus (2.5-4.5) mg/dL Magnesium (1.6-2.3) mg/dL Total Bilirubin (0.2-1.3) mg/dL AST (14-36) U/L ALT (0-35) U/L Alkaline Phosphatase (38-126) U/L Troponin I (0.000-0.034) ng/mL NT-Pro-B Natriuret Pep (<300) pg/mL Serum Total Protein (6.3-8.2) g/dL Albumin (3.5-5.0) g/dL Triglycerides (30-150) mg/dL Cholesterol (50-200) mg/dL LDL Cholesterol (30-100) mg/dL HDL Cholesterol (40-60) mg/dL Heart Disease Risk Ratio Procalcitonin (0.030-0.080) ng/mL TSH 3rd Generation (0.47-4.68) mIU/L Urine Color (Yellow) Urine Appearance (Clear) Urine pH (4.6-8.0) Ur Specific [place] (1.005-1.030) Urine Protein (Negative) Urine Glucose (UA) (Negative) mg/dL Urine Ketones (Negative) Urine Blood (Negative) Urine Nitrite (Negative) Urine Bilirubin (Negative) Urine Urobilinogen (0.2) mg/dL Ur Leukocyte Esterase (Negative) U Hyaline Cast (Auto) (0-2) /LPF Urine Microscopic RBC (0-5) /HPF Urine Microscopic WBC (0-5) /HPF Ur Epithelial Cells (None Seen) /HPF Urine Bacteria (None Seen) /HPF Urine Culture Reflexed (NO) Urine Sodium < 5 L (30-90) mmol/L Influenza Type A Ag (NEGATIVE) Influenza Type B Ag (NEGATIVE) RSV (PCR) (NEGATIVE) SARS-CoV-2 (PCR) (NEGATIVE) 09/13/23 09/13/23 Range/Units 04:35 04:35 WBC 19.8 H (4.0-10.5) x10^3/uL RBC 4.89 (4.1-5.4) x10^6/uL Hgb 13.8 (12.0-16.0) g/dL Hct 41.7 (35-47) % MCV 85.3 (78-100) fL MCH 28.2 (26-32) pg MCHC 33.1 (32-36) g/dL RDW 12.8 (11.5-14.0) % Plt Count 131 L (150-450) x10^3/uL MPV 9.6 (7.5-11.0) fL Gran % 89.7 H (36.0-66.0) % Immature Gran % (Auto) 1.0 H (0.00-0.4) % Nucleat RBC Rel Count 0.0 (0.00-0.1) % Eos # (Auto) 0.04 (0-0.5) x10^3/uL Immature Gran # (Auto) 0.20 H (0.00-0.03) x10^3u/L Absolute Lymphs (auto) 1.21 (1.0-4.6) x10^3/uL Absolute Monos (auto) 0.55 (0.0-1.3) x10^3/uL Absolute Nucleated RBC 0.00 (0.00-0.01) x10^3u/L Lymphocytes % 6.1 L (24.0-44.0) % Monocytes % 2.8 (0.0-12.0) % Eosinophils % 0.2 (0.00-5.0) % Basophils % 0.2 (0.0-0.4) % Absolute Granulocytes 17.73 H (1.4-6.9) x10^3/uL Segmented Neutrophils (36.0-66.0) % Lymphocytes (Manual) (24-44) % Monocytes (Manual) (0.0-12.0) % Basophils # 0.03 (0-0.4) x10^3/uL Platelet Estimate (NORMAL) RBC Morphology Sodium (137-145) mmol/L Potassium (3.5-5.1) mmol/L Chloride (98-107) mmol/L Carbon Dioxide (22-30) mmol/L Anion Gap (5-15) MEQ/L BUN (7-17) mg/dL Creatinine (0.52-1.04) mg/dL Estimated GFR ML/MIN Glucose (74-106) mg/dL POC Glucometer (74 to 106) mg/dL Hemoglobin A1c (4.5-6.0) % Lactic Acid 3.0 H (0.4-2.0) Calcium (8.4-10.2) mg/dL Phosphorus (2.5-4.5) mg/dL Magnesium (1.6-2.3) mg/dL Total Bilirubin (0.2-1.3) mg/dL AST (14-36) U/L ALT (0-35) U/L Alkaline Phosphatase (38-126) U/L Troponin I (0.000-0.034) ng/mL NT-Pro-B Natriuret Pep (<300) pg/mL Serum Total Protein (6.3-8.2) g/dL Albumin (3.5-5.0) g/dL Triglycerides (30-150) mg/dL Cholesterol (50-200) mg/dL LDL Cholesterol (30-100) mg/dL HDL Cholesterol (40-60) mg/dL Heart Disease Risk Ratio Procalcitonin (0.030-0.080) ng/mL TSH 3rd Generation (0.47-4.68) mIU/L Urine Color (Yellow) Urine Appearance (Clear) Urine pH (4.6-8.0) Ur Specific [place] (1.005-1.030) Urine Protein (Negative) Urine Glucose (UA) (Negative) mg/dL Urine Ketones (Negative) Urine Blood (Negative) Urine Nitrite (Negative) Urine Bilirubin (Negative) Urine Urobilinogen (0.2) mg/dL Ur Leukocyte Esterase (Negative) U Hyaline Cast (Auto) (0-2) /LPF Urine Microscopic RBC (0-5) /HPF Urine Microscopic WBC (0-5) /HPF Ur Epithelial Cells (None Seen) /HPF Urine Bacteria (None Seen) /HPF Urine Culture Reflexed (NO) Urine Sodium (30-90) mmol/L Influenza Type A Ag (NEGATIVE) Influenza Type B Ag (NEGATIVE) RSV (PCR) (NEGATIVE) SARS-CoV-2 (PCR) (NEGATIVE) Radiology Exams: Radiology Procedures Category Date Time Status CHEST 2 VIEWS (PA AND LAT) Stat Exams 09/12/23 15:32 Completed CHEST WITH CONTRAST [CT] Stat Exams 09/12/23 18:30 Completed <DANY CORREA - Last Filed: 09/13/23 10:17> Vital Signs: Vital Signs - 24 hr Temp Pulse Resp BP Pulse Ox 09/13/23 19:16 97.2 F 104 H 18 131/65 93 L 09/13/23 18:14 98 H 18 93 L 09/13/23 16:00 97.6 F 99 H 17 111/57 91 L 09/13/23 12:32 93 L 09/13/23 12:00 97.8 F 98 H 18 117/67 92 L 09/13/23 07:33 97.0 F 101 H 18 125/62 94 L 09/13/23 06:49 80 16 86 L 09/13/23 03:59 98.3 F 89 19 111/66 92 L 09/12/23 23:56 97.8 F 84 20 109/50 92 L Pain Assessment - Last Documented Pain Intensity 0 Intake and Output: Intake & Output 09/11/23 09/12/23 09/13/23 09/14/23 11:59 11:59 11:59 11:59 Intake Total 2623 2180 Output Total 1000 Balance 1623 2180 Weight 143.7 kg Lab Results: Lab Results-Last 24 Hours 09/12/23 09/13/23 09/13/23 Range/Units 21:00 04:35 04:35 WBC 19.8 H (4.0-10.5) x10^3/uL RBC 4.89 (4.1-5.4) x10^6/uL Hgb 13.8 (12.0-16.0) g/dL Hct 41.7 (35-47) % MCV 85.3 (78-100) fL MCH 28.2 (26-32) pg MCHC 33.1 (32-36) g/dL RDW 12.8 (11.5-14.0) % Plt Count 131 L (150-450) x10^3/uL MPV 9.6 (7.5-11.0) fL Gran % 89.7 H (36.0-66.0) % Immature Gran % (Auto) 1.0 H (0.00-0.4) % Nucleat RBC Rel Count 0.0 (0.00-0.1) % Eos # (Auto) 0.04 (0-0.5) x10^3/uL Immature Gran # (Auto) 0.20 H (0.00-0.03) x10^3u/L Absolute Lymphs (auto) 1.21 (1.0-4.6) x10^3/uL Absolute Monos (auto) 0.55 (0.0-1.3) x10^3/uL Absolute Nucleated RBC 0.00 (0.00-0.01) x10^3u/L Lymphocytes % 6.1 L (24.0-44.0) % Monocytes % 2.8 (0.0-12.0) % Eosinophils % 0.2 (0.00-5.0) % Basophils % 0.2 (0.0-0.4) % Absolute Granulocytes 17.73 H (1.4-6.9) x10^3/uL Basophils # 0.03 (0-0.4) x10^3/uL Sodium 128 L 131 L (137-145) mmol/L Potassium 3.3 L (3.5-5.1) mmol/L Chloride 94 L (98-107) mmol/L Carbon Dioxide 29 (22-30) mmol/L Anion Gap 10.4 (5-15) MEQ/L BUN 17 (7-17) mg/dL Creatinine 0.75 (0.52-1.04) mg/dL Estimated GFR 94.0 ML/MIN Glucose 301 H (74-106) mg/dL POC Glucometer (74 to 106) mg/dL Lactic Acid (0.4-2.0) Calcium 8.6 (8.4-10.2) mg/dL Magnesium (1.6-2.3) mg/dL Total Bilirubin 0.90 (0.2-1.3) mg/dL AST 32 (14-36) U/L ALT 33 (0-35) U/L Alkaline Phosphatase 97 (38-126) U/L Serum Total Protein 7.2 (6.3-8.2) g/dL Albumin 3.6 (3.5-5.0) g/dL Free T4 (0.78-2.19) ng/dL TSH 3rd Generation (0.47-4.68) mIU/L 09/13/23 09/13/23 09/13/23 Range/Units 04:35 04:35 07:28 WBC (4.0-10.5) x10^3/uL RBC (4.1-5.4) x10^6/uL Hgb (12.0-16.0) g/dL Hct (35-47) % MCV (78-100) fL MCH (26-32) pg MCHC (32-36) g/dL RDW (11.5-14.0) % Plt Count (150-450) x10^3/uL MPV (7.5-11.0) fL Gran % (36.0-66.0) % Immature Gran % (Auto) (0.00-0.4) % Nucleat RBC Rel Count (0.00-0.1) % Eos # (Auto) (0-0.5) x10^3/uL Immature Gran # (Auto) (0.00-0.03) x10^3u/L Absolute Lymphs (auto) (1.0-4.6) x10^3/uL Absolute Monos (auto) (0.0-1.3) x10^3/uL Absolute Nucleated RBC (0.00-0.01) x10^3u/L Lymphocytes % (24.0-44.0) % Monocytes % (0.0-12.0) % Eosinophils % (0.00-5.0) % Basophils % (0.0-0.4) % Absolute Granulocytes (1.4-6.9) x10^3/uL Basophils # (0-0.4) x10^3/uL Sodium (137-145) mmol/L Potassium (3.5-5.1) mmol/L Chloride (98-107) mmol/L Carbon Dioxide (22-30) mmol/L Anion Gap (5-15) MEQ/L BUN (7-17) mg/dL Creatinine (0.52-1.04) mg/dL Estimated GFR ML/MIN Glucose (74-106) mg/dL POC Glucometer 291 H (74 to 106) mg/dL Lactic Acid 3.0 H (0.4-2.0) Calcium (8.4-10.2) mg/dL Magnesium 1.9 (1.6-2.3) mg/dL Total Bilirubin (0.2-1.3) mg/dL AST (14-36) U/L ALT (0-35) U/L Alkaline Phosphatase (38-126) U/L Serum Total Protein (6.3-8.2) g/dL Albumin (3.5-5.0) g/dL Free T4 (0.78-2.19) ng/dL TSH 3rd Generation (0.47-4.68) mIU/L 09/13/23 09/13/23 09/13/23 Range/Units 12:09 12:10 14:35 WBC (4.0-10.5) x10^3/uL RBC (4.1-5.4) x10^6/uL Hgb (12.0-16.0) g/dL Hct (35-47) % MCV (78-100) fL MCH (26-32) pg MCHC (32-36) g/dL RDW (11.5-14.0) % Plt Count (150-450) x10^3/uL MPV (7.5-11.0) fL Gran % (36.0-66.0) % Immature Gran % (Auto) (0.00-0.4) % Nucleat RBC Rel Count (0.00-0.1) % Eos # (Auto) (0-0.5) x10^3/uL Immature Gran # (Auto) (0.00-0.03) x10^3u/L Absolute Lymphs (auto) (1.0-4.6) x10^3/uL Absolute Monos (auto) (0.0-1.3) x10^3/uL Absolute Nucleated RBC (0.00-0.01) x10^3u/L Lymphocytes % (24.0-44.0) % Monocytes % (0.0-12.0) % Eosinophils % (0.00-5.0) % Basophils % (0.0-0.4) % Absolute Granulocytes (1.4-6.9) x10^3/uL Basophils # (0-0.4) x10^3/uL Sodium (137-145) mmol/L Potassium 3.3 L 3.4 L (3.5-5.1) mmol/L Chloride (98-107) mmol/L Carbon Dioxide (22-30) mmol/L Anion Gap (5-15) MEQ/L BUN (7-17) mg/dL Creatinine (0.52-1.04) mg/dL Estimated GFR ML/MIN Glucose (74-106) mg/dL POC Glucometer 309 H (74 to 106) mg/dL Lactic Acid (0.4-2.0) Calcium (8.4-10.2) mg/dL Magnesium (1.6-2.3) mg/dL Total Bilirubin (0.2-1.3) mg/dL AST (14-36) U/L ALT (0-35) U/L Alkaline Phosphatase (38-126) U/L Serum Total Protein (6.3-8.2) g/dL Albumin (3.5-5.0) g/dL Free T4 (0.78-2.19) ng/dL TSH 3rd Generation (0.47-4.68) mIU/L 09/13/23 09/13/23 09/13/23 Range/Units 16:18 19:40 Unknown WBC (4.0-10.5) x10^3/uL RBC (4.1-5.4) x10^6/uL Hgb (12.0-16.0) g/dL Hct (35-47) % MCV (78-100) fL MCH (26-32) pg MCHC (32-36) g/dL RDW (11.5-14.0) % Plt Count (150-450) x10^3/uL MPV (7.5-11.0) fL Gran % (36.0-66.0) % Immature Gran % (Auto) (0.00-0.4) % Nucleat RBC Rel Count (0.00-0.1) % Eos # (Auto) (0-0.5) x10^3/uL Immature Gran # (Auto) (0.00-0.03) x10^3u/L Absolute Lymphs (auto) (1.0-4.6) x10^3/uL Absolute Monos (auto) (0.0-1.3) x10^3/uL Absolute Nucleated RBC (0.00-0.01) x10^3u/L Lymphocytes % (24.0-44.0) % Monocytes % (0.0-12.0) % Eosinophils % (0.00-5.0) % Basophils % (0.0-0.4) % Absolute Granulocytes (1.4-6.9) x10^3/uL Basophils # (0-0.4) x10^3/uL Sodium (137-145) mmol/L Potassium 3.6 (3.5-5.1) mmol/L Chloride (98-107) mmol/L Carbon Dioxide (22-30) mmol/L Anion Gap (5-15) MEQ/L BUN (7-17) mg/dL Creatinine (0.52-1.04) mg/dL Estimated GFR ML/MIN Glucose (74-106) mg/dL POC Glucometer 303 H (74 to 106) mg/dL Lactic Acid (0.4-2.0) Calcium (8.4-10.2) mg/dL Magnesium (1.6-2.3) mg/dL Total Bilirubin (0.2-1.3) mg/dL AST (14-36) U/L ALT (0-35) U/L Alkaline Phosphatase (38-126) U/L Serum Total Protein (6.3-8.2) g/dL Albumin (3.5-5.0) g/dL Free T4 (0.78-2.19) ng/dL TSH 3rd Generation 0.049 L (0.47-4.68) mIU/L 09/13/23 Range/Units Unknown WBC (4.0-10.5) x10^3/uL RBC (4.1-5.4) x10^6/uL Hgb (12.0-16.0) g/dL Hct (35-47) % MCV (78-100) fL MCH (26-32) pg MCHC (32-36) g/dL RDW (11.5-14.0) % Plt Count (150-450) x10^3/uL MPV (7.5-11.0) fL Gran % (36.0-66.0) % Immature Gran % (Auto) (0.00-0.4) % Nucleat RBC Rel Count (0.00-0.1) % Eos # (Auto) (0-0.5) x10^3/uL Immature Gran # (Auto) (0.00-0.03) x10^3u/L Absolute Lymphs (auto) (1.0-4.6) x10^3/uL Absolute Monos (auto) (0.0-1.3) x10^3/uL Absolute Nucleated RBC (0.00-0.01) x10^3u/L Lymphocytes % (24.0-44.0) % Monocytes % (0.0-12.0) % Eosinophils % (0.00-5.0) % Basophils % (0.0-0.4) % Absolute Granulocytes (1.4-6.9) x10^3/uL Basophils # (0-0.4) x10^3/uL Sodium (137-145) mmol/L Potassium (3.5-5.1) mmol/L Chloride (98-107) mmol/L Carbon Dioxide (22-30) mmol/L Anion Gap (5-15) MEQ/L BUN (7-17) mg/dL Creatinine (0.52-1.04) mg/dL Estimated GFR ML/MIN Glucose (74-106) mg/dL POC Glucometer (74 to 106) mg/dL Lactic Acid (0.4-2.0) Calcium (8.4-10.2) mg/dL Magnesium (1.6-2.3) mg/dL Total Bilirubin (0.2-1.3) mg/dL AST (14-36) U/L ALT (0-35) U/L Alkaline Phosphatase (38-126) U/L Serum Total Protein (6.3-8.2) g/dL Albumin (3.5-5.0) g/dL Free T4 2.42 H (0.78-2.19) ng/dL TSH 3rd Generation (0.47-4.68) mIU/L Radiology Exams: Radiology Procedures Category Date Time Status CHEST 2 VIEWS (PA AND LAT) Stat Exams 09/12/23 15:32 Completed CHEST WITH CONTRAST [CT] Stat Exams 09/12/23 18:30 Completed THYROID [US] Urgent Exams 09/13/23 07:40 Completed <NEFTALY PATTON - Last Filed: 09/13/23 21:03> Assessment/Plan (1) Sepsis Current Visit: Yes Status: Acute Assessment & Plan: -Most likely secondary to RSV with superimposed bacterial pneumonia -CXR reviewed consistent with pneumonia -pending final read by radiology -CTA chest w/contrast -PE protocol negative for PE, showing pneumonia in the RLL -Viral panel with RSV positive -Lactate/Procal drawn. Repeat lactate will be drawn in initial >2mmol/L If subsequent lactate elevated, trend until WNL -Will admin vasopressors is hypotensive after IV admin (MAP <65 or SBP <90). -blood and urine cxs ordered and pending -IVF bolus -Ceftriaxone/azithromycin given in ED, will continue ceftriaxone/azithromycin -RT eval, supplemental oxygen with goal spo2>92%-CBC, BMP, Mg, Phos in am- continue appropriate baseline home medications -DVT prophylaxis-lovenox 40 mg SQ daily 2/5: -WBC trending down, 19.8<27.2 -Lactic at 3.0 -Procal elevated at 0.606 -continue current abx/steroid (2) RSV (respiratory syncytial virus infection) Current Visit: Yes Status: Acute Assessment & Plan: -supportive treatment with supplemental oxygen with goal spo2 > 92%, tessalon adam/see pneumonia Code(s): B33.8 - OTHER SPECIFIED VIRAL DISEASES (3) Pneumonia Current Visit: Yes Status: Acute Assessment & Plan: -CXR consistent with pneumonia -pending final read -CT chest w/PE protocol with no PE, consistent with pneumonia in the right lower lobe with surrounding ground glass haze. -supplemental oxygen for goal spo2 > 92% -pulm consult if no improvement -Blood cxs obtained and pending -sputum culture -Mucinex/tessalon perles -start duonebs, methylprednisone -received ceftriaxone in ED, continue ceftriaxone/azithromycin /: -WBC improving 19.8<27.2 -Blood, urine, and sputum cultures pending -continue abx/steroid Code(s): J18.9 - PNEUMONIA, UNSPECIFIED ORGANISM (4) Hyponatremia Current Visit: Yes Status: Acute Assessment & Plan: -sodium correction for hyperglycemia 129 -IVF -TSH, lipid, urine sodium -BMP q4H 2/5: -stable, correcting hyperglycemia -repeat tSH tomorrow Code(s): E87.1 - HYPO-OSMOLALITY AND HYPONATREMIA (5) Diabetes mellitus Current Visit: Yes Status: Acute Assessment & Plan: -ADA diet -SSI - may need to adjust in the setting of steroids/glargine -A1c 8.91 Code(s): E11.9 - TYPE 2 DIABETES MELLITUS WITHOUT COMPLICATIONS (6) HTN (hypertension) Current Visit: Yes Status: Acute Assessment & Plan: -stable, continue home regimen (7) Thyroid nodule -CT noting 13mm density nodule in left lobe of thyroid- will order thyroid US 09/13: -Thyroid US pending VTE: lovenox PPI: protonix Dispo: 1-2 days (2) RSV (respiratory syncytial virus infection) Current Visit: Yes Status: Acute Code(s): B33.8 - OTHER SPECIFIED VIRAL DISEASES (3) Pneumonia Current Visit: Yes Status: Acute Code(s): J18.9 - PNEUMONIA, UNSPECIFIED ORGANISM (4) Hyponatremia Current Visit: Yes Status: Acute Code(s): E87.1 - HYPO-OSMOLALITY AND HYPONATREMIA (5) Diabetes mellitus Current Visit: Yes Status: Acute Code(s): E11.9 - TYPE 2 DIABETES MELLITUS WITHOUT COMPLICATIONS (6) HTN (hypertension) Current Visit: Yes Status: Acute Code(s): I10 - ESSENTIAL (PRIMARY) HYPERTENSION <DANY CORREA - Last Filed: 09/13/23 10:17> KHUSHBU Encounter - KHUSHBU Encounter Attestation KHUSHBU Encounter Attestation: "IhpedropersonallysTERESO Hatfield andhavediscussed pertinent aspects of their care with Dany Rothman agree with the history, physical exam (any modifications based on my personal exam will be noted below), assessment, and plan as outlined in original note. Please see immediately below for my summary of findings and additional assessment and plan along with any meaningful corrections/explanations to the Subjective/Objective portions of the KHUSHBU note will be noted." My portion of the encounter took place via telemedicine. -RSV, secondary bacterial pneumonia. Improving on IV antibiotics, possible DC tomorrow <NEFTALY PATTON - Last Filed: 09/13/23 21:03>
[2023-09-13 05:24] LABS: ALBUMIN 3.6 g/dL (3.5-5.0); ANION GAP 10.4 MEQ/L (5-15); BILIRUBIN,TOTAL 0.9 mg/dL (0.2-1.3); Calcium 8.6 mg/dL (8.4-10.2); Creatinine 1 0.75 mg/dL (0.52-1.04); Potassium 3.3 mmol/L (3.5-5.1); Total Protein 7.2 g/dL (6.3-8.2)
[2023-09-13] MEDS ORDERED: solu-MEDROL ONE (05:54)
[2023-09-13] MEDS ORDERED: Sterile H2O 10 ml IJ ONE (05:55)
[2023-09-13] MEDS: Klor Con PO SCH ×4 (05:57→13:37)
[2023-09-13] MEDS: solu-MEDROL 40 MG, Sterile H2O 10 ml 1 ML IV SCH ×6 (05:59→22:21)
[2023-09-13] MEDS ORDERED: Zithromax 500 MG/ 250 ML NaCl Premix 250 ML IV SCH (10:00)
[2023-09-13] MEDS: NORVASC 5 MG PO SCH (10:26)
[2023-09-13] MEDS: Mucinex 600MG ER Tabs PO SCH ×2 (10:26→22:21)
[2023-09-13] MEDS: ZYLOPRIM 100 MG PO SCH (10:26)
[2023-09-13] MEDS: Cyclobenzaprine 10 MG PO SCH (10:26)
[2023-09-13] MEDS: ENOXAPARIN SODIUM SQ SCH (10:26)
[2023-09-13] MEDS: ROCEPHIN 1 GM / 100 ML NaCl 1 GM/100 ML IVPB IV SCH (10:26)
[2023-09-13] MEDS: Lantus Insulin SQ SCH (10:27)
[2023-09-13] MEDS: HUMALOG SQ PRN ×4 (10:27→22:21)
[2023-09-13] MEDS: Zithromax 500 MG/ 250 ML NaCl Premix 500 MG/250 ML IVPB IV SCH (12:40)
--- NOTE | 2023-09-13 13:37 | XRAY ---
Indication: Thyroid nodule. Two-dimensional thyroid sonogram performed. Comparison: None No thyromegaly. Right lobe measures 3.8 x 2.0 x 1.7 cm and left measures 4.1 x 2.7 x 2.0 cm. Isthmus thickened measuring 8.5 mm. Multiple bilateral heterogeneous hypoechogenic nodules, largest left mid lobe measuring 1.3 x 1.1 x 1.4 cm. Impression: Sonographic features favoring multinodular goiter.
[2023-09-13] MEDS ORDERED: Klor Con PO ONE (17:06)
[2023-09-13] MEDS: HUMALOG SQ SCH (17:19)
[2023-09-14] MEDS: DUONEB 0.5-3 MG/3 ml Neb IH SCH ×3 (00:33→12:52)
[2023-09-14] MEDS: Sodium Chloride 0.9% 1000 ML 1,000 ML IV SCH (02:26)
[2023-09-14 04:59] LABS: Absolute Neutrophil Ct (ANC) 16.65 x10^3/uL (1.4-6.9); BASOPHIL % 0.2 % (0.0-0.4); Basophil (Absolute #) 0.04 x10^3/uL (0-0.4); Eosinophil % 1.8 % (0.00-5.0); Eosinophil (Absolute #) 0.34 x10^3/uL (0-0.5); Hematocrit 38.7 % (35-47); Hemoglobin 12.8 g/dL (12.0-16.0); IMMATURE GRAN # 0.19 x10^3u/L (0.00-0.03); Lymphocyte (Absolute #) 1.39 x10^3/uL (1.0-4.6); Lymphocytes % 7.2 % (24.0-44.0); Mean Cell Volume 85.2 fL (78-100); Mean Corpuscular Hemoglobin 28.2 pg (26-32); Mean Corpuscular Hgb Concent. 33.1 g/dL (32-36); Mean Platelet Volume 10.3 fL (7.5-11.0); Monocyte (Absolute #) 0.64 x10^3/uL (0.0-1.3); Monocytes % 3.3 % (0.0-12.0); Neutrophil % 86.5 % (36.0-66.0); Platelet Count 163 x10^3/uL (150-450); Red Blood Count 4.54 x10^6/uL (4.1-5.4); White Blood Count 19.3 x10^3/uL (4.0-10.5)
[2023-09-14 05:07] LABS: ALBUMIN 3.3 g/dL (3.5-5.0); ANION GAP 8.1 MEQ/L (5-15); BILIRUBIN,TOTAL 0.6 mg/dL (0.2-1.3); Calcium 8.8 mg/dL (8.4-10.2); Creatinine 1 0.65 mg/dL (0.52-1.04); EST GLOMERULAR FILTRATION RATE 103.9 ML/MIN; Potassium 3.8 mmol/L (3.5-5.1); Total Protein 6.7 g/dL (6.3-8.2)
--- NOTE | 2023-09-14 05:10 | PCM.DS ---
Discharge Summary Date of Admission: 09/12/23 17:10 Date of Discharge: 09/14/23 Admitting Physician: MITZY MARKS MD Primary Care Provider: DONI ESCOBAR DO <DANY CORREA - Last Filed: 09/14/23 12:40> Date of Admission: 09/12/23 17:10 Admitting Physician: MITZY MARKS MD Primary Care Provider: DONI ESCOBAR DO <NEFTALY PATTON - Last Filed: 09/14/23 22:23> Allergies <DANY CORREA - Last Filed: 09/14/23 12:40> <ABDI,NEFTALY - Last Filed: 09/14/23 22:23> Allergies ciprofloxacin [From Cipro] Adverse Reaction (Verified 09/12/23 18:08) metformin Adverse Reaction (Verified 09/12/23 18:08) Hospital Summary - Hospital Course Hospital Course: Subjective Assessment: Ms. Johnson is a 53 year old female admitted with sepsis secondary to RSV with superimposed pneumonia. Upon presentation WBC at 27.2. CT consistent with Pneumonia, no PE. Patient placed on 2L, she is RA at baseline. Sepsis workup obtained, blood, sputum, and urine cultures pending. IP treatment with ceftriaxone/azithromycin/duonebs/inh/solumedrol. Dyspnea and cough have improved, patient now on baseline oxygen. She will discharge on cefpo doxime,duonebs, prednisone. Patient did have thyroid nodule on imaging that she has been advised to follow up on as OP will schedule with Dr. Montero. Discharge Note New Diagnosis:RSV/Pneumonia New Medications:Cefpodoxime/duonebs/Medrol dose pack Follow Up: PCP/Gerda Latest Assessment & Plan 1) Sepsis Current Visit: Yes Status: Acute Assessment & Plan: -Most likely secondary to RSV with superimposed bacterial pneumonia -CXR reviewed consistent with pneumonia -pending final read by radiology -CTA chest w/contrast -PE protocol negative for PE, showing pneumonia in the RLL -Viral panel with RSV positive -Lactate/Procal drawn. Repeat lactate will be drawn in initial >2mmol/L If subsequent lactate elevated, trend until WNL -Will admin vasopressors is hypotensive after IV admin (MAP <65 or SBP <90). -blood and urine cxs ordered and pending -IVF bolus -Ceftriaxone/azithromycin given in ED, will continue ceftriaxone/azithromycin -RT eval, supplemental oxygen with goal spo2>92%-CBC, BMP, Mg, Phos in am- continue appropriate baseline home medications -DVT prophylaxis-lovenox 40 mg SQ daily 2/5: -WBC trending down, 19.8<27.2 -Lactic at 3.0 -Procal elevated at 0.606 -continue current abx/steroid (2) RSV (respiratory syncytial virus infection) Current Visit: Yes Status: Acute Assessment & Plan: -supportive treatment with supplemental oxygen with goal spo2 > 92%, tessalon perles/see pneumonia Code(s): B33.8 - OTHER SPECIFIED VIRAL DISEASES (3) Pneumonia Current Visit: Yes Status: Acute Assessment & Plan: -CXR consistent with pneumonia -pending final read -CT chest w/PE protocol with no PE, consistent with pneumonia in the right lower lobe with surrounding ground glass haze. -supplemental oxygen for goal spo2 > 92% -pulm consult if no improvement -Blood cxs obtained and pending -sputum culture -Mucinex/tessalon perles -start duonebs, methylprednisone -received ceftriaxone in ED, continue ceftriaxone/azithromycin 2/5: -WBC improving 19.8<27.2 -Blood, urine, and sputum cultures pending -continue abx/steroid Code(s): J18.9 - PNEUMONIA, UNSPECIFIED ORGANISM (4) Hyponatremia Current Visit: Yes Status: Acute Assessment & Plan: -sodium correction for hyperglycemia 129 -IVF -TSH, lipid, urine sodium -BMP q4H 2/5: -stable, correcting hyperglycemia -repeat tSH tomorrow Code(s): E87.1 - HYPO-OSMOLALITY AND HYPONATREMIA (5) Diabetes mellitus Current Visit: Yes Status: Acute Assessment & Plan: -ADA diet -SSI - may need to adjust in the setting of steroids/glargine -A1c 8.91 Code(s): E11.9 - TYPE 2 DIABETES MELLITUS WITHOUT COMPLICATIONS (6) HTN (hypertension) Current Visit: Yes Status: Acute Assessment & Plan: -stable, continue home regimen (7) Thyroid nodule -CT noting 13mm density nodule in left lobe of thyroid- will order thyroid US 2/5: -Thyroid US pending VTE: lovenox PPI: protonix Dispo: 1-2 days I spent 35 minutes [id number] with the patient on the day of discharge performing discharge exam, discussing hospital stay and discharge instructions with patient and caregivers, preparation of discharge records, prescriptions & referral forms and addressing any questions/concerns the patient had as documented above. - Vitals & Intake/Output Vital Signs: Vital Signs Temperature 97.4 F 09/14/23 04:00 Pulse Rate 74 09/14/23 04:00 Respiratory Rate 18 09/14/23 04:00 Blood Pressure 118/55 09/14/23 04:00 O2 Sat by Pulse Oximetry 94 L 09/14/23 04:00 Intake & Output: Intake & Output 09/11/23 09/12/23 09/13/23 09/14/23 11:59 11:59 11:59 11:59 Intake Total 2623 2420 Output Total 1000 Balance 1623 2420 Weight 143.7 kg - Lab Result Diagrams: 09/14/23 04:47 09/14/23 04:47 Lab Results-Last 24 Hrs: Lab Results-Last 24 Hours 09/13/23 09/13/23 09/13/23 Range/Units 04:35 04:35 07:28 WBC (4.0-10.5) x10^3/uL RBC (4.1-5.4) x10^6/uL Hgb (12.0-16.0) g/dL Hct (35-47) % MCV (78-100) fL MCH (26-32) pg MCHC (32-36) g/dL RDW (11.5-14.0) % Plt Count (150-450) x10^3/uL MPV (7.5-11.0) fL Gran % (36.0-66.0) % Immature Gran % (Auto) (0.00-0.4) % Nucleat RBC Rel Count (0.00-0.1) % Eos # (Auto) (0-0.5) x10^3/uL Immature Gran # (Auto) (0.00-0.03) x10^3u/L Absolute Lymphs (auto) (1.0-4.6) x10^3/uL Absolute Monos (auto) (0.0-1.3) x10^3/uL Absolute Nucleated RBC (0.00-0.01) x10^3u/L Lymphocytes % (24.0-44.0) % Monocytes % (0.0-12.0) % Eosinophils % (0.00-5.0) % Basophils % (0.0-0.4) % Absolute Granulocytes (1.4-6.9) x10^3/uL Basophils # (0-0.4) x10^3/uL Sodium 131 L (137-145) mmol/L Potassium 3.3 L (3.5-5.1) mmol/L Chloride 94 L (98-107) mmol/L Carbon Dioxide 29 (22-30) mmol/L Anion Gap 10.4 (5-15) MEQ/L BUN 17 (7-17) mg/dL Creatinine 0.75 (0.52-1.04) mg/dL Estimated GFR 94.0 ML/MIN Glucose 301 H (74-106) mg/dL POC Glucometer 291 H (74 to 106) mg/dL Calcium 8.6 (8.4-10.2) mg/dL Magnesium 1.9 (1.6-2.3) mg/dL Total Bilirubin 0.90 (0.2-1.3) mg/dL AST 32 (14-36) U/L ALT 33 (0-35) U/L Alkaline Phosphatase 97 (38-126) U/L Serum Total Protein 7.2 (6.3-8.2) g/dL Albumin 3.6 (3.5-5.0) g/dL Free T4 (0.78-2.19) ng/dL TSH 3rd Generation (0.47-4.68) mIU/L 09/13/23 09/13/23 09/13/23 Range/Units 12:09 12:10 14:35 WBC (4.0-10.5) x10^3/uL RBC (4.1-5.4) x10^6/uL Hgb (12.0-16.0) g/dL Hct (35-47) % MCV (78-100) fL MCH (26-32) pg MCHC (32-36) g/dL RDW (11.5-14.0) % Plt Count (150-450) x10^3/uL MPV (7.5-11.0) fL Gran % (36.0-66.0) % Immature Gran % (Auto) (0.00-0.4) % Nucleat RBC Rel Count (0.00-0.1) % Eos # (Auto) (0-0.5) x10^3/uL Immature Gran # (Auto) (0.00-0.03) x10^3u/L Absolute Lymphs (auto) (1.0-4.6) x10^3/uL Absolute Monos (auto) (0.0-1.3) x10^3/uL Absolute Nucleated RBC (0.00-0.01) x10^3u/L Lymphocytes % (24.0-44.0) % Monocytes % (0.0-12.0) % Eosinophils % (0.00-5.0) % Basophils % (0.0-0.4) % Absolute Granulocytes (1.4-6.9) x10^3/uL Basophils # (0-0.4) x10^3/uL Sodium (137-145) mmol/L Potassium 3.3 L 3.4 L (3.5-5.1) mmol/L Chloride (98-107) mmol/L Carbon Dioxide (22-30) mmol/L Anion Gap (5-15) MEQ/L BUN (7-17) mg/dL Creatinine (0.52-1.04) mg/dL Estimated GFR ML/MIN Glucose (74-106) mg/dL POC Glucometer 309 H (74 to 106) mg/dL Calcium (8.4-10.2) mg/dL Magnesium (1.6-2.3) mg/dL Total Bilirubin (0.2-1.3) mg/dL AST (14-36) U/L ALT (0-35) U/L Alkaline Phosphatase (38-126) U/L Serum Total Protein (6.3-8.2) g/dL Albumin (3.5-5.0) g/dL Free T4 (0.78-2.19) ng/dL TSH 3rd Generation (0.47-4.68) mIU/L 09/13/23 09/13/23 09/13/23 Range/Units 16:18 19:40 21:47 WBC (4.0-10.5) x10^3/uL RBC (4.1-5.4) x10^6/uL Hgb (12.0-16.0) g/dL Hct (35-47) % MCV (78-100) fL MCH (26-32) pg MCHC (32-36) g/dL RDW (11.5-14.0) % Plt Count (150-450) x10^3/uL MPV (7.5-11.0) fL Gran % (36.0-66.0) % Immature Gran % (Auto) (0.00-0.4) % Nucleat RBC Rel Count (0.00-0.1) % Eos # (Auto) (0-0.5) x10^3/uL Immature Gran # (Auto) (0.00-0.03) x10^3u/L Absolute Lymphs (auto) (1.0-4.6) x10^3/uL Absolute Monos (auto) (0.0-1.3) x10^3/uL Absolute Nucleated RBC (0.00-0.01) x10^3u/L Lymphocytes % (24.0-44.0) % Monocytes % (0.0-12.0) % Eosinophils % (0.00-5.0) % Basophils % (0.0-0.4) % Absolute Granulocytes (1.4-6.9) x10^3/uL Basophils # (0-0.4) x10^3/uL Sodium (137-145) mmol/L Potassium 3.6 (3.5-5.1) mmol/L Chloride (98-107) mmol/L Carbon Dioxide (22-30) mmol/L Anion Gap (5-15) MEQ/L BUN (7-17) mg/dL Creatinine (0.52-1.04) mg/dL Estimated GFR ML/MIN Glucose (74-106) mg/dL POC Glucometer 303 H 273 H (74 to 106) mg/dL Calcium (8.4-10.2) mg/dL Magnesium (1.6-2.3) mg/dL Total Bilirubin (0.2-1.3) mg/dL AST (14-36) U/L ALT (0-35) U/L Alkaline Phosphatase (38-126) U/L Serum Total Protein (6.3-8.2) g/dL Albumin (3.5-5.0) g/dL Free T4 (0.78-2.19) ng/dL TSH 3rd Generation (0.47-4.68) mIU/L 09/13/23 09/13/23 09/14/23 Range/Units Unknown Unknown 04:47 WBC 19.3 H (4.0-10.5) x10^3/uL RBC 4.54 (4.1-5.4) x10^6/uL Hgb 12.8 (12.0-16.0) g/dL Hct 38.7 (35-47) % MCV 85.2 (78-100) fL MCH 28.2 (26-32) pg MCHC 33.1 (32-36) g/dL RDW 13.0 (11.5-14.0) % Plt Count 163 (150-450) x10^3/uL MPV 10.3 (7.5-11.0) fL Gran % 86.5 H (36.0-66.0) % Immature Gran % (Auto) 1.0 H (0.00-0.4) % Nucleat RBC Rel Count 0.0 (0.00-0.1) % Eos # (Auto) 0.34 (0-0.5) x10^3/uL Immature Gran # (Auto) 0.19 H (0.00-0.03) x10^3u/L Absolute Lymphs (auto) 1.39 (1.0-4.6) x10^3/uL Absolute Monos (auto) 0.64 (0.0-1.3) x10^3/uL Absolute Nucleated RBC 0.00 (0.00-0.01) x10^3u/L Lymphocytes % 7.2 L (24.0-44.0) % Monocytes % 3.3 (0.0-12.0) % Eosinophils % 1.8 (0.00-5.0) % Basophils % 0.2 (0.0-0.4) % Absolute Granulocytes 16.65 H (1.4-6.9) x10^3/uL Basophils # 0.04 (0-0.4) x10^3/uL Sodium (137-145) mmol/L Potassium (3.5-5.1) mmol/L Chloride (98-107) mmol/L Carbon Dioxide (22-30) mmol/L Anion Gap (5-15) MEQ/L BUN (7-17) mg/dL Creatinine (0.52-1.04) mg/dL Estimated GFR ML/MIN Glucose (74-106) mg/dL POC Glucometer (74 to 106) mg/dL Calcium (8.4-10.2) mg/dL Magnesium (1.6-2.3) mg/dL Total Bilirubin (0.2-1.3) mg/dL AST (14-36) U/L ALT (0-35) U/L Alkaline Phosphatase (38-126) U/L Serum Total Protein (6.3-8.2) g/dL Albumin (3.5-5.0) g/dL Free T4 2.42 H (0.78-2.19) ng/dL TSH 3rd Generation 0.049 L (0.47-4.68) mIU/L Micro Results-Entire Visit: Microbiology 09/12/23 17:24 Urine Culture - Preliminary Urine, Void NO GROWTH TO DATE Accuchecks Date 09/13/23 Date 09/13/23 Date 09/13/23 Date 09/13/23 Time 16:39 Time 12:15 Time 07:33 - Radiology Exams Ordered Rad Exams-Entire Visit: Radiology Procedures Category Date Time Status CHEST 2 VIEWS (PA AND LAT) Stat Exams 09/12/23 15:32 Completed CHEST WITH CONTRAST [CT] Stat Exams 09/12/23 18:30 Completed THYROID [US] Urgent Exams 09/13/23 07:40 Completed - Procedures and Test Procedures and Tests throughout Hospitalization: Therapy Orders & Screens 09/12/23 15:43 Respiratory Therapy Assessment DAILY Comment: 09/12/23 17:16 Oxygen Nasal Cannula 2 lpm Comment: Respiratory Therapy Consult ROUTINE Comment: Reason For Exam: Diagnosis: Pneumonia <DANY CORREA - Last Filed: 09/14/23 12:40> - Vitals & Intake/Output Vital Signs: Vital Signs Temperature 97.6 F 09/14/23 11:47 Pulse Rate 87 09/14/23 12:52 Respiratory Rate 16 09/14/23 12:52 Blood Pressure 153/84 09/14/23 11:47 O2 Sat by Pulse Oximetry 94 L 09/14/23 12:52 Intake & Output: Intake & Output 09/12/23 09/13/23 09/14/23 09/15/23 11:59 11:59 11:59 11:59 Intake Total 2623 3578 120 Output Total 1000 Balance 1623 3578 120 Weight 143.7 kg - Lab Result Diagrams: 09/14/23 04:47 09/14/23 04:47 Lab Results-Last 24 Hrs: Lab Results-Last 24 Hours 09/14/23 09/14/23 09/14/23 Range/Units 04:47 04:47 07:10 WBC 19.3 H (4.0-10.5) x10^3/uL RBC 4.54 (4.1-5.4) x10^6/uL Hgb 12.8 (12.0-16.0) g/dL Hct 38.7 (35-47) % MCV 85.2 (78-100) fL MCH 28.2 (26-32) pg MCHC 33.1 (32-36) g/dL RDW 13.0 (11.5-14.0) % Plt Count 163 (150-450) x10^3/uL MPV 10.3 (7.5-11.0) fL Gran % 86.5 H (36.0-66.0) % Immature Gran % (Auto) 1.0 H (0.00-0.4) % Nucleat RBC Rel Count 0.0 (0.00-0.1) % Eos # (Auto) 0.34 (0-0.5) x10^3/uL Immature Gran # (Auto) 0.19 H (0.00-0.03) x10^3u/L Absolute Lymphs (auto) 1.39 (1.0-4.6) x10^3/uL Absolute Monos (auto) 0.64 (0.0-1.3) x10^3/uL Absolute Nucleated RBC 0.00 (0.00-0.01) x10^3u/L Lymphocytes % 7.2 L (24.0-44.0) % Monocytes % 3.3 (0.0-12.0) % Eosinophils % 1.8 (0.00-5.0) % Basophils % 0.2 (0.0-0.4) % Absolute Granulocytes 16.65 H (1.4-6.9) x10^3/uL Basophils # 0.04 (0-0.4) x10^3/uL Sodium 132 L (137-145) mmol/L Potassium 3.8 (3.5-5.1) mmol/L Chloride 101 (98-107) mmol/L Carbon Dioxide 27 (22-30) mmol/L Anion Gap 8.1 (5-15) MEQ/L BUN 22 H (7-17) mg/dL Creatinine 0.65 (0.52-1.04) mg/dL Estimated GFR 103.9 ML/MIN Glucose 257 H (74-106) mg/dL POC Glucometer 224 H (74 to 106) mg/dL Calcium 8.8 (8.4-10.2) mg/dL Magnesium 2.0 (1.6-2.3) mg/dL Total Bilirubin 0.60 (0.2-1.3) mg/dL AST 28 (14-36) U/L ALT 26 (0-35) U/L Alkaline Phosphatase 112 (38-126) U/L Serum Total Protein 6.7 (6.3-8.2) g/dL Albumin 3.3 L (3.5-5.0) g/dL 09/14/23 Range/Units 11:35 WBC (4.0-10.5) x10^3/uL RBC (4.1-5.4) x10^6/uL Hgb (12.0-16.0) g/dL Hct (35-47) % MCV (78-100) fL MCH (26-32) pg MCHC (32-36) g/dL RDW (11.5-14.0) % Plt Count (150-450) x10^3/uL MPV (7.5-11.0) fL Gran % (36.0-66.0) % Immature Gran % (Auto) (0.00-0.4) % Nucleat RBC Rel Count (0.00-0.1) % Eos # (Auto) (0-0.5) x10^3/uL Immature Gran # (Auto) (0.00-0.03) x10^3u/L Absolute Lymphs (auto) (1.0-4.6) x10^3/uL Absolute Monos (auto) (0.0-1.3) x10^3/uL Absolute Nucleated RBC (0.00-0.01) x10^3u/L Lymphocytes % (24.0-44.0) % Monocytes % (0.0-12.0) % Eosinophils % (0.00-5.0) % Basophils % (0.0-0.4) % Absolute Granulocytes (1.4-6.9) x10^3/uL Basophils # (0-0.4) x10^3/uL Sodium (137-145) mmol/L Potassium (3.5-5.1) mmol/L Chloride (98-107) mmol/L Carbon Dioxide (22-30) mmol/L Anion Gap (5-15) MEQ/L BUN (7-17) mg/dL Creatinine (0.52-1.04) mg/dL Estimated GFR ML/MIN Glucose (74-106) mg/dL POC Glucometer 280 H (74 to 106) mg/dL Calcium (8.4-10.2) mg/dL Magnesium (1.6-2.3) mg/dL Total Bilirubin (0.2-1.3) mg/dL AST (14-36) U/L ALT (0-35) U/L Alkaline Phosphatase (38-126) U/L Serum Total Protein (6.3-8.2) g/dL Albumin (3.5-5.0) g/dL Micro Results-Entire Visit: Microbiology 09/12/23 18:12 Blood Culture - Preliminary Blood 09/12/23 18:10 Blood Culture - Preliminary Blood 09/12/23 17:24 Urine Culture - Final Urine, Void NO GROWTH Accuchecks Date 09/14/23 Date 09/14/23 Time 11:46 Time 07:21 - Radiology Exams Ordered Rad Exams-Entire Visit: Radiology Procedures Category Date Time Status THYROID [US] Urgent Exams 09/13/23 07:40 Completed - Procedures and Test Procedures and Tests throughout Hospitalization: Therapy Orders & Screens 09/12/23 15:43 Respiratory Therapy Assessment DAILY Comment: 09/12/23 17:16 Oxygen Nasal Cannula 2 lpm Comment: Respiratory Therapy Consult ROUTINE Comment: Reason For Exam: Diagnosis: Pneumonia 09/14/23 12:09 Qualify for Home Oxygen TODAY Comment: Diagnosis: sob/cough <NEFTALY PATTON - Last Filed: 09/14/23 22:23> Discharge Exam General Appearance: no apparent distress Neurologic Exam: alert, oriented x 3, cooperative Eye Exam: PERRL Ears, Nose, Throat Exam: normal ENT inspection Neck Exam: normal inspection Respiratory Exam: wheezing Cardiovascular Exam: regular rate/rhythm, normal heart sounds Gastrointestinal/Abdomen Exam: soft, normal bowel sounds Pelvic Exam: deferred Rectal Exam: deferred Back Exam: normal inspection Extremity Exam: normal inspection Skin Exam: normal color <DANY CORREA - Last Filed: 09/14/23 12:40> Final Diagnosis/Problem List - Final Discharge Diagnosis/Problem (1) Sepsis Status: Acute (2) RSV (respiratory syncytial virus infection) Status: Acute Code(s): B33.8 - OTHER SPECIFIED VIRAL DISEASES (3) Pneumonia Status: Acute Code(s): J18.9 - PNEUMONIA, UNSPECIFIED ORGANISM (4) Hyponatremia Status: Acute Code(s): E87.1 - HYPO-OSMOLALITY AND HYPONATREMIA (5) Diabetes mellitus Status: Acute Code(s): E11.9 - TYPE 2 DIABETES MELLITUS WITHOUT COMPLICATIONS (6) HTN (hypertension) Status: Acute Code(s): I10 - ESSENTIAL (PRIMARY) HYPERTENSION <DANY CORREA - Last Filed: 09/14/23 12:40> <DANY CORREA - Last Filed: 09/14/23 12:40> <NEFTALY PATTON - Last Filed: 09/14/23 22:23> - Discharge Disposition: Home, Self-Care Condition: Fair Prescriptions: New Albuterol/Ipratropium 3ml Neb* [DUONEB 0.5-3 MG/3 ml Neb] 3 ml IH Q6HPRN HI N 30 Days #120 amp PRN Reason: Shortness Of Breath/Wheezing Methylprednisolone Packet [Medrol Dosepack] 4 mg PO UD #30 packet Cefpodoxime Proxetil 200 mg [Vantin 200 mg] 200 mg PO BID 7 Days #14 tablet Continue Amlodipine Besylate 5 mg [Norvasc 5 mg] 5 mg PO DAILY Spironolactone 25 mg [Aldactone 25 MG] 25 mg PO DAILY Allopurinol 100 mg [Zyloprim 100 mg] 200 mg PO DAILY Semaglutide [Ozempic] 1 mg SQ UD Insulin Glargine [Lantus Insulin] 40 unit SQ DAILY Glimepiride 1 mg PO BID Escitalopram Oxalate [Lexapro] 10 mg PO DAILY Cyclobenzaprine HCl 10 mg [Cyclobenzaprine 10 MG] 10 mg PO DAILY hydroCHLOROthiazide [Hydrochlorothiazide] 12.5 mg PO DAILY Instructions: Pneumonia, Adult (DC), Respiratory Syncytial Virus, Adult (DC), Cefpodoxime, Ipratropium and Albuterol, Methylprednisolone Follow up with: CRISTO ALMONTE NP [NON-STAFF PHY W/O PRIVILEGES] - 09/24/23 1:45 pm IDANIA MONTERO [NON-STAFF PHY W/O PRIVILEGES] - 09/20/23 1:15 pm (APPOINTMENT [address] [employer],NEW PATIENT APPOINTMENT, RRIVE 15 MINS EARLY AND BRING ID AND INSURANCE CARDS.) Forms: Discharge Instructions KHUSHBU Encounter - KHUSHBU Encounter Attestation KHUSHBU Encounter Attestation: "TERESO Uribe andhavediscussed pertinent aspects of their care with Dany Rothman agree with the history, physical exam (any modifications based on my personal exam will be noted below), assessment, and plan as outlined in original note. Please see immediately below for my summary of findings and additional assessment and plan along with any meaningful corrections/explanations to the Subjective/Objective portions of the KHUSHBU note will be noted." My portion of the encounter took place via telemedicine. <NEFTALY PATTON - Last Filed: 09/14/23 22:23>
[2023-09-14] MEDS: HUMALOG SQ SCH ×2 (07:46→11:51)
[2023-09-14] MEDS: HUMALOG SQ PRN ×2 (07:47→11:51)
[2023-09-14] MEDS: solu-MEDROL 40 MG, Sterile H2O 10 ml 1 ML IV SCH ×2 (09:06)
[2023-09-14] MEDS: Lantus Insulin SQ SCH (09:06)
[2023-09-14] MEDS: Mucinex 600MG ER Tabs PO SCH (09:07)
[2023-09-14] MEDS: ENOXAPARIN SODIUM SQ SCH (09:07)
[2023-09-14] MEDS: Cyclobenzaprine 10 MG PO SCH (09:07)
[2023-09-14] MEDS: ZYLOPRIM 100 MG PO SCH (09:07)
[2023-09-14] MEDS: NORVASC 5 MG PO SCH (09:07)
[2023-09-14] MEDS: ROCEPHIN 1 GM / 100 ML NaCl 1 GM/100 ML IVPB IV SCH (09:08)
[2023-09-14] MEDS: Zithromax 500 MG/ 250 ML NaCl Premix 500 MG/250 ML IVPB IV SCH (09:51)
[2023-09-14 11:48] VITALS: BP 153/84; TEMP 97.6; O2SAT 94
[2023-09-14 13:06] VITALS: PULSE 87; RESP 16
== END 2023-09-14 13:58 | disposition home or self-care (01) ==
LOC: ED 14:48 → MED SURG 17:10
PROVIDERS: ADMIT Internal Medicine; ATTEND Internal Medicine
DX: A41.9 Sepsis, unspecified organism (principal); B33.8 Other specified viral diseases; J18.9 Pneumonia, unspecified organism; E87.1 Hypo-osmolality and hyponatremia; E11.9 Type 2 diabetes mellitus without complications; I10 Essential (primary) hypertension; R50.9 Fever, unspecified; R00.0 Tachycardia, unspecified; E87.6 Hypokalemia; Z79.899 Other long term (current) drug therapy; Z20.828 Contact with and (suspected) exposure to other viral communicable diseases
CPT/HCPCS: 0241U; 36000; 36415; 71046; 71260; 76536; 80053; 80061; 81001; 82947; 83036; 83605; 83721; 83735; 83880; 84100; 84132; 84145; 84295; 84300; 84439; 84443; 84480; 84482; 84484; 85025; 87040; 87086; 93005; 94640; 94760; 96374; 99284; Q3014; 93268; J0456; J0696; J1650; J1817; J2920; J2930; A9270-GY; G0378

== ENCOUNTER 2024-04-12 15:53 | Day surgery (SDC) | payer OTHER ==
[2024-04-12] MEDS ORDERED: Sodium Chloride 0.9(Preservative Free) 10 ML IJ ONE (15:54)
[2024-04-12] MEDS ORDERED: LIDOCAINE HCL 1% 50 MG/5 ML VL PF IJ ONE (15:54)
[2024-04-12] MEDS ORDERED: Decadron 4 MG INJ IV ONE (15:54)
[2024-04-12] MEDS ORDERED: Lactated Ringers 1,000 ML IV ONE (16:55)
--- NOTE | 2024-04-12 20:28 | XRAY ---
Indication: Cervical ADWOA. Intraoperative fluoroscopy provided for 30 seconds. 4 digital spot image submitted for interpretation demonstrates needle tip projecting posterior to cervical thoracic junction. Small amount of contrast injected for needle tip placement. Correlate with intraoperative findings/report.
--- NOTE | 2024-04-13 09:17 | XRAY ---
30 seconds of fluoroscopy was used in surgery for a cervical ADWOA.
== END 2024-04-12 17:50 | disposition home or self-care (01) ==
LOC: SDC-PAIN 15:53
PROVIDERS: ATTEND Psychiatry & Neurology Pain Medicine
DX: M54.12 Radiculopathy, cervical region (principal); E11.9 Type 2 diabetes mellitus without complications
CPT/HCPCS: 62321; 72040; 77003; 82947; J1100; J2001; Q9966

== ENCOUNTER 2024-06-07 15:29 | Day surgery (SDC) | payer OTHER ==
[2024-06-07] MEDS ORDERED: Sodium Chloride 0.9(Preservative Free) 10 ML IJ ONE (15:30)
[2024-06-07] MEDS ORDERED: Depo-Medrol 40 MG/ML IM ONE (15:30)
[2024-06-07] MEDS ORDERED: LIDOCAINE HCL 1% AMPUL 5 ML IJ ONE (15:30)
--- NOTE | 2024-06-07 18:58 | XRAY ---
Indication: Lumbar ADWOA. Intraoperative fluoroscopy provided for 14 seconds. 2 digital spot image submitted for interpretation demonstrates posterior needle tip projecting posterior to L4-L5 interspace. Small amount of contrast injected for needle tip placement. Correlate with intraoperative findings/report.
--- NOTE | 2024-06-08 08:51 | XRAY ---
14 seconds of fluoroscopy was used in surgery for a lumbar ADWOA.
== END 2024-06-07 17:34 | disposition home or self-care (01) ==
LOC: SDC-PAIN 15:29
PROVIDERS: ATTEND Psychiatry & Neurology Pain Medicine
DX: M54.16 Radiculopathy, lumbar region (principal); E11.9 Type 2 diabetes mellitus without complications
CPT/HCPCS: 62323; 72100; 77003; 82947; Q9966

== ENCOUNTER 2024-10-19 15:51 | Day surgery (SDC) | payer OTHER ==
[2024-10-19] MEDS ORDERED: LIDOCAINE HCL 1% 50 MG/5 ML VL IJ ONE (15:52)
[2024-10-19] MEDS ORDERED: dexAMETHasone sodium phosphate IJ ONE (15:52)
[2024-10-19] MEDS ORDERED: Sodium Chloride 0.9(Preservative Free) 10 ML IJ ONE (15:52)
[2024-10-19] MEDS ORDERED: Sodium Chloride 0.9% 250 ML 250 ML IV ONE (15:55)
[2024-10-19] MEDS ORDERED: MORPHINE SULFATE 2 MG INJ ONE (17:33)
--- NOTE | 2024-10-19 20:41 | XRAY ---
Indication: Cervical ADWOA. Intraoperative fluoroscopy provided for 34 seconds. 4 digital spot images submitted for interpretation demonstrates posterior needle tip projecting posterior to cervical thoracic junction. Small amount of contrast injected for needle tip placement. Correlate with intraoperative findings/report.
--- NOTE | 2024-10-19 20:44 | XRAY ---
34 seconds of fluoroscopy were used in surgery for a cervical ADWOA.
== END 2024-10-19 17:55 | disposition home or self-care (01) ==
LOC: SDC-PAIN 15:51
PROVIDERS: ATTEND Psychiatry & Neurology Pain Medicine
DX: M54.12 Radiculopathy, cervical region (principal); E11.9 Type 2 diabetes mellitus without complications
CPT/HCPCS: 62321; 72040; 77003; 82947; J1100; J2270; Q9966